=== PATIENT | female | born 1945 | race Caucasian/White ===

== ENCOUNTER 2019-07-24 09:03 | Observation (INO) | payer MEDICARE ==
[~2019-07-24] VITALS: Ht 157.5 cm; Wt 97.3 kg
[~2019-07-24 09:03] MED LIST: ACET-890 PO; BUPR150T8 PO; GABA300C PO; METH4TAB3 PO; NITR100C6 PO; ONDA4TAB59 PO; PRED20TA PO
[2019-07-24] MEDS ORDERED: nitroGLYCERIN 0.4mg SUBLingual tab SL PRN ×2 (09:20→14:55)
[2019-07-24] MEDS ORDERED: aspirin 81mg tab.chew PO ONE (09:20)
[2019-07-24 09:32] LABS: BASOPHILS # (AUTO) 0.1 X10'3 (0-0.2); BASOPHILS % (AUTO) 1.5 % (0-1); EOSINOPHILS # (AUTO) 0.1 X10'3 (0-0.9); HEMATOCRIT 41.6 % (35.0-45.0); HEMOGLOBIN 14.4 g/dl (12.0-16.0); LYMPHOCYTES # (AUTO) 2.9 X10'3 (1.1-4.8); LYMPHOCYTES % (AUTO) 44.1 % (21-51); MEAN CORPUSCULAR HEMOGLOBIN 31.7 PG (27.0-31.0); MEAN CORPUSCULAR HGB CONC 34.6 g/dL (33.0-36.5); MEAN CORPUSCULAR VOLUME 91.5 FL (78-98); MEAN PLATELET VOLUME 8.4 FL (7.4-10.4); MONOCYTES # (AUTO) 0.5 X10'3 (0-0.9); MONOCYTES % (AUTO) 7.7 % (2-12); NEUTROPHILS % (AUTO) 44.7 % (42-75); PLATELET COUNT 241 X10'3 (140-440); RED BLOOD COUNT 4.54 X10'6 (4.20-5.60); RED CELL DISTRIBUTION WIDTH 12.8 % (11.5-14.5); WHITE BLOOD COUNT 6.7 X10'3 (4.5-11.0)
[2019-07-24 09:46] LABS: ALANINE AMINOTRANSFERASE 24 U/L (12-78); ALBUMIN 3.5 G/DL (3.4-5.0); ALBUMIN/GLOBULIN RATIO 0.9 (1.1-1.5); ALKALINE PHOSPHATASE 94 IU/L (46-116); ANION GAP 12 (8-16); ASPARTATE AMINO TRANSFERASE 18 U/L (10-37); BILIRUBIN,TOTAL 0.3 MG/DL (0.1-1.0); BLOOD UREA NITROGEN 12 MG/DL (7-18); BUN/CREATININE RATIO 14.3 (6.6-38.0); CHLORIDE 106 MMOL/L (99-107); CREATININE 0.84 MG/DL (0.40-0.90); GLUCOSE 185 MG/DL (70-104); SODIUM 140 MMOL/L (135-145); TOTAL CARBON DIOXIDE 22.5 MMOL/L (24-32); TOTAL PROTEIN 7.6 G/DL (6.4-8.2); eGFR 66 ML/MIN
[2019-07-24] MEDS ORDERED: acetaminophen 325mg tablet PO PRN (10:45)
[2019-07-24] MEDS ORDERED: magnesium hydroxide 30ml (MOM) UD suspension PO PRN (10:45)
[2019-07-24] MEDS ORDERED: ondansetron/PF 4mg/2ml inj IV PRN (10:45)
[2019-07-24] MEDS ORDERED: mag hydrox/Alum hydrox/simeth 30ml oral suspension PO PRN (10:45)
[2019-07-24] MEDS ORDERED: morphine 2 MG/ML inj. syringe IV PRN ×2 (10:45)
--- NOTE | 2019-07-24 11:23 | NUR ---
Patient in room ED 13. I have received report from JAGJIT Norris RN and had the opportunity to ask questions and assume patient care.
--- NOTE | 2019-07-24 11:55 | NUR ---
Pt arrived to [facility] room 310 via gurney from ED. Pt ambulated off gurney, in to room independently and without difficulty. Pt connected to monitor, vital signs obtained, oriented to room including TV and call light use. Belongings placed within reach. Will continue to monitor.
[2019-07-24 12:00] VITALS: BP 157/50
[2019-07-24] MEDS ORDERED: aminophylline 250mg/10ml inj. IV PRN (14:55)
[2019-07-24] MEDS ORDERED: metoprolol tartrate 1mg/ml inj IV PRN (14:55)
[2019-07-24] MEDS ORDERED: regadenoson 0.4mg/5ml syringe IV ONE (14:55)
[2019-07-24 15:00] VITALS: BP 168/70
[2019-07-24] MEDS ORDERED: NO HOME MEDS (15:25)
[2019-07-24 18:00] VITALS: BP 163/74
[2019-07-24] MEDS: heparin, porcine 5000 units/ml vial SQ SCH (19:59)
[2019-07-24] MEDS: carVEDilol 3.125mg tablet PO SCH (19:59)
[2019-07-24] MEDS: normal saline 1000ml 1,000 ML IV SCH (19:59)
[2019-07-24 22:00] VITALS: BP 139/54
[2019-07-25] VITALS (10 sets, daily range): BP systolic 113–146; BP diastolic 60–80
[2019-07-25 03:43] LABS: BASOPHILS # (AUTO) 0.1 X10'3 (0-0.2); BASOPHILS % (AUTO) 1.1 % (0-1); EOSINOPHILS # (AUTO) 0.2 X10'3 (0-0.9); EOSINOPHILS % (AUTO) 2.3 % (0-6); HEMATOCRIT 40.9 % (35.0-45.0); HEMOGLOBIN 14.2 g/dl (12.0-16.0); LYMPHOCYTES # (AUTO) 3.9 X10'3 (1.1-4.8); LYMPHOCYTES % (AUTO) 51.4 % (21-51); MEAN CORPUSCULAR HEMOGLOBIN 31.6 PG (27.0-31.0); MEAN CORPUSCULAR HGB CONC 34.7 g/dL (33.0-36.5); MEAN CORPUSCULAR VOLUME 91.2 FL (78-98); MEAN PLATELET VOLUME 8.4 FL (7.4-10.4); MONOCYTES # (AUTO) 0.8 X10'3 (0-0.9); MONOCYTES % (AUTO) 10.2 % (2-12); NEUTROPHILS # (AUTO) 2.7 X10'3 (1.8-7.7); PLATELET COUNT 243 X10'3 (140-440); RED BLOOD COUNT 4.49 X10'6 (4.20-5.60); RED CELL DISTRIBUTION WIDTH 12.9 % (11.5-14.5); WHITE BLOOD COUNT 7.6 X10'3 (4.5-11.0)
[2019-07-25 03:52] LABS: ALBUMIN 3.3 G/DL (3.4-5.0); ANION GAP 8 (8-16); BLOOD UREA NITROGEN 12 MG/DL (7-18); BUN/CREATININE RATIO 15.8 (6.6-38.0); CALCIUM 8.8 MG/DL (8.5-10.1); CHLORIDE 106 MMOL/L (99-107); CREATININE 0.76 MG/DL (0.40-0.90); GLUCOSE 116 MG/DL (70-104); POTASSIUM 4.1 MMOL/L (3.5-5.1); SODIUM 139 MMOL/L (135-145); eGFR 75 ML/MIN
[2019-07-25 04:14] LABS: TOTAL CELLS COUNTED 100
[2019-07-25 04:15] LABS: PLATELET ESTIMATE NORMAL
[2019-07-25] MEDS: normal saline 1000ml 1,000 ML IV SCH (05:19)
--- NOTE | 2019-07-25 06:14 | NUR ---
Patient in room MED 310. I have received report from anay Johnson and had the opportunity to ask questions and assume patient care.
--- NOTE | 2019-07-25 06:31 | NUR ---
Problems reprioritized. Patient report given, questions answered & plan of care reviewed with Gianna DENSON.
[2019-07-25] MEDS: heparin, porcine 5000 units/ml vial SQ SCH (07:30)
[2019-07-25] MEDS ORDERED: atorvastatin 20mg tablet PO SCH (08:00)
[2019-07-25] MEDS ORDERED: aspirin 81mg tablet.DR PO SCH (08:00)
--- NOTE | 2019-07-25 09:10 | NUR ---
Pt left unit for stress test at 0910 via wheelchair. No noted distress.
[2019-07-25] MEDS ORDERED: COR3.125T PO (11:54)
[2019-07-25] MEDS: carVEDilol 3.125mg tablet PO SCH (12:12)
--- NOTE | 2019-07-25 15:14 | NUR ---
reviewed all discharge instructions,including medications and f/u appt.SL dc'd from [facility], pt dc;d home with all belongings via wheelchair with family
== END 2019-07-25 15:00 | disposition home or self-care (01) ==
LOC: ER 09:04 → ED HOLD 10:47 → MED 3N 12:27
PROVIDERS: ADMIT Family Medicine; ATTEND Family Medicine
DX: R07.89 Other chest pain (principal); R01.1 Cardiac murmur, unspecified; I10 Essential (primary) hypertension; I35.0 Nonrheumatic aortic (valve) stenosis; E78.00 Pure hypercholesterolemia, unspecified; R42 Dizziness and giddiness; R11.0 Nausea; K21.9 Gastro-esophageal reflux disease without esophagitis; G89.29 Other chronic pain; M54.9 Dorsalgia, unspecified; F32.9 Major depressive disorder, single episode, unspecified; F41.9 Anxiety disorder, unspecified; E78.5 Hyperlipidemia, unspecified; E66.9 Obesity, unspecified; Z86.73 Personal history of transient ischemic attack (TIA), and cerebral infarction without residual deficits; Z90.710 Acquired absence of both cervix and uterus; Z90.49 Acquired absence of other specified parts of digestive tract; Z90.89 Acquired absence of other organs; Z98.51 Tubal ligation status; Z79.899 Other long term (current) drug therapy; Z88.5 Allergy status to narcotic agent; Z88.1 Allergy status to other antibiotic agents; Z88.2 Allergy status to sulfonamides; Z88.8 Allergy status to other drugs, medicaments and biological substances; Z91.040 Latex allergy status; Z91.013 Allergy to seafood; Z68.39 Body mass index [BMI] 39.0-39.9, adult
CPT/HCPCS: 36415; 71045; 78452; 80048; 80053; 83880; 84484; 85025; 87081; 93005; 93017; 93306; 96361; 96372; 96374; 99284; A9500; G0378; J1644; J2270; J2785; J7030

== ENCOUNTER 2019-09-09 22:02 | Emergency (ER) | payer MEDICARE, OTHER ==
[~2019-09-09] VITALS: Ht 160 cm; Wt 93.8 kg
[~2019-09-09 22:02] MED LIST changes: -ACET-890 PO; -BUPR150T8 PO; +COR3.125T PO; -GABA300C PO; -METH4TAB3 PO; -NITR100C6 PO; -ONDA4TAB59 PO; -PRED20TA PO
[2019-09-09] MEDS ORDERED: ondansetron/PF 4mg/2ml inj IV ONE (22:25)
[2019-09-09 22:43] LABS: BASOPHILS # (AUTO) 0.1 X10'3 (0-0.2); BASOPHILS % (AUTO) 1.4 % (0-1); EOSINOPHILS # (AUTO) 0.1 X10'3 (0-0.9); EOSINOPHILS % (AUTO) 1.4 % (0-6); HEMATOCRIT 44.2 % (35.0-45.0); HEMOGLOBIN 15.2 g/dl (12.0-16.0); LYMPHOCYTES % (AUTO) 38.7 % (21-51); MEAN CORPUSCULAR HEMOGLOBIN 31.4 PG (27.0-31.0); MEAN CORPUSCULAR HGB CONC 34.4 g/dL (33.0-36.5); MEAN CORPUSCULAR VOLUME 91.3 FL (78-98); MEAN PLATELET VOLUME 8.5 FL (7.4-10.4); MONOCYTES % (AUTO) 9.3 % (2-12); NEUTROPHILS # (AUTO) 5.1 X10'3 (1.8-7.7); NEUTROPHILS % (AUTO) 49.2 % (42-75); PLATELET COUNT 269 X10'3 (140-440); RED BLOOD COUNT 4.84 X10'6 (4.20-5.60); RED CELL DISTRIBUTION WIDTH 12.4 % (11.5-14.5); WHITE BLOOD COUNT 10.4 X10'3 (4.5-11.0)
[2019-09-09] MEDS ORDERED: ondansetron 4mg rapidly disintigrating tab PO ONE (22:45)
[2019-09-09 22:51] LABS: ALANINE AMINOTRANSFERASE 28 U/L (12-78); ALBUMIN 3.7 G/DL (3.4-5.0); ALBUMIN/GLOBULIN RATIO 0.9 (1.1-1.5); ALKALINE PHOSPHATASE 100 IU/L (46-116); ANION GAP 6 (8-16); ASPARTATE AMINO TRANSFERASE 19 U/L (10-37); BILIRUBIN,TOTAL 0.3 MG/DL (0.1-1.0); BLOOD UREA NITROGEN 15 MG/DL (7-18); BUN/CREATININE RATIO 15.5 (6.6-38.0); CHLORIDE 104 MMOL/L (99-107); CREATININE 0.97 MG/DL (0.40-0.90); GLUCOSE 125 MG/DL (70-104); LIPASE 154 U/L (73-393); POTASSIUM 3.9 MMOL/L (3.5-5.1); SODIUM 137 MMOL/L (135-145); TOTAL CARBON DIOXIDE 27.1 MMOL/L (24-32); TOTAL PROTEIN 7.6 G/DL (6.4-8.2); eGFR 56 ML/MIN
[2019-09-09 23:34] LABS: CLARITY,URINE CLEAR (Clear); COLOR,URINE YELLOW (Yellow); GLUCOSE, URINE NEGATIVE (Neg); KETONES,URINE NEGATIVE (Neg); LEUKOCYTE ESTERASE ,URINE SMALL (Neg); NITRITES, URINE NEGATIVE (Neg); OCCULT BLOOD,URINE TRACE-INTACT (Neg); PROTEIN,URINE NEGATIVE (Neg); UROBILINOGEN,URINE 0.2 E.U/dL (0.2-1.0)
[2019-09-09 23:41] LABS: UA COLLECTION TYPE CLN CATCH MIDSTREAM
[2019-09-09 23:42] LABS: BACTERIA,URINE FEW /HPF (Neg); RBC,URINE 0-2 /HPF (0-2); SQUAMOUS EPITHELIAL CELL,UR FEW /LPF (FEW)
[2019-09-10] MEDS ORDERED: DOXY100C43 PO (00:16)
[2019-09-10] MEDS ORDERED: ALBU18HF2 INH (00:16)
[2019-09-10] MEDS ORDERED: ONDA4TAB6 PO (00:27)
[2019-09-10 00:43] VITALS: BP 136/54
== END 2019-09-10 00:25 | disposition home or self-care (01) ==
LOC: ER 22:02
DX: J06.9 Acute upper respiratory infection, unspecified (principal); J20.9 Acute bronchitis, unspecified; N39.0 Urinary tract infection, site not specified; E78.00 Pure hypercholesterolemia, unspecified; K21.9 Gastro-esophageal reflux disease without esophagitis; G89.29 Other chronic pain; F41.9 Anxiety disorder, unspecified; F32.9 Major depressive disorder, single episode, unspecified; Z86.73 Personal history of transient ischemic attack (TIA), and cerebral infarction without residual deficits; Z90.49 Acquired absence of other specified parts of digestive tract; Z90.710 Acquired absence of both cervix and uterus; Z90.89 Acquired absence of other organs; Z98.51 Tubal ligation status; Z98.890 Other specified postprocedural states; Z88.2 Allergy status to sulfonamides; Z88.1 Allergy status to other antibiotic agents; Z88.5 Allergy status to narcotic agent; Z88.6 Allergy status to analgesic agent; Z88.8 Allergy status to other drugs, medicaments and biological substances; Z91.013 Allergy to seafood; Z91.040 Latex allergy status; Z79.899 Other long term (current) drug therapy
CPT/HCPCS: 36415; 71045; 74176; 80053; 81001; 83690; 85025; 87088; 99284; J2405

== ENCOUNTER 2020-08-11 21:26 | Observation (INO) | payer MEDICARE, OTHER ==
[~2020-08-11] VITALS: Ht 157.5 cm; Wt 90.9 kg
[~2020-08-11 21:26] MED LIST changes: +APIX5TAB3 PO; +BUPR300T53 PO; +LAN0.125T PO; +ONDA4TAB6 PO
[2020-08-11] MEDS ORDERED: nitroGLYCERIN 0.4mg SUBLingual tab SL PRN ×2 (22:05→22:45)
[2020-08-11] MEDS ORDERED: aspirin 81mg tab.chew PO ONE (22:05)
[2020-08-11 22:14] LABS: BASOPHILS # (AUTO) 0.1 X10'3 (0-0.2); BASOPHILS % (AUTO) 1.1 % (0-1); EOSINOPHILS # (AUTO) 0.2 X10'3 (0-0.9); EOSINOPHILS % (AUTO) 1.4 % (0-6); HEMATOCRIT 42.7 % (35.0-45.0); HEMOGLOBIN 14.8 g/dl (12.0-16.0); LYMPHOCYTES # (AUTO) 4.5 X10'3 (1.1-4.8); LYMPHOCYTES % (AUTO) 42.1 % (21-51); MEAN CORPUSCULAR HEMOGLOBIN 31.7 PG (27.0-31.0); MEAN CORPUSCULAR HGB CONC 34.7 g/dL (33.0-36.5); MEAN CORPUSCULAR VOLUME 91.4 FL (78-98); MEAN PLATELET VOLUME 9.5 FL (7.4-10.4); MONOCYTES # (AUTO) 0.9 X10'3 (0-0.9); MONOCYTES % (AUTO) 8.8 % (2-12); NEUTROPHILS % (AUTO) 46.6 % (42-75); PLATELET COUNT 256 X10'3 (140-440); RED BLOOD COUNT 4.67 X10'6 (4.20-5.60); RED CELL DISTRIBUTION WIDTH 12.8 % (11.5-14.5); WHITE BLOOD COUNT 10.7 X10'3 (4.5-11.0)
[2020-08-11 22:18] LABS: ALANINE AMINOTRANSFERASE 24 U/L (12-78); ALBUMIN 3.7 G/DL (3.4-5.0); ALBUMIN/GLOBULIN RATIO 0.9 (1.1-1.5); ALKALINE PHOSPHATASE 126 IU/L (46-116); ANION GAP 9 (8-16); ASPARTATE AMINO TRANSFERASE 10 U/L (10-37); BILIRUBIN,TOTAL 0.3 MG/DL (0.1-1.0); BLOOD UREA NITROGEN 14 MG/DL (7-18); BUN/CREATININE RATIO 13.9 (6.6-38.0); CALCIUM 9.3 MG/DL (8.5-10.1); CHLORIDE 104 MMOL/L (99-107); CREATININE 1.01 MG/DL (0.40-0.90); GLUCOSE 140 MG/DL (70-104); POTASSIUM 4.1 MMOL/L (3.5-5.1); SODIUM 137 MMOL/L (135-145); TOTAL CARBON DIOXIDE 23.9 MMOL/L (24-32); eGFR 54 ML/MIN
[2020-08-11] MEDS ORDERED: acetaminophen 325mg tablet PO PRN (22:45)
[2020-08-11] MEDS ORDERED: regadenoson 0.4mg/5ml syringe IV PRN (22:45)
[2020-08-11] MEDS ORDERED: magnesium 4gm in 100ml NS 100 ML IV PRN (22:45)
[2020-08-11] MEDS ORDERED: magnesium 2GM in 50ml NS 50 ML IV PRN (22:45)
[2020-08-11] MEDS ORDERED: potassium CL 10mEq/100ml bag 100 ML IV PRN ×2 (22:45)
[2020-08-11] MEDS ORDERED: potassium Cl 20 mEq SR tablet PO PRN ×2 (22:45)
[2020-08-11] MEDS ORDERED: aminophylline 250mg/10ml inj. IV PRN (22:45)
[2020-08-11] MEDS ORDERED: ondansetron/PF 4mg/2ml inj IV PRN (22:45)
[2020-08-11] MEDS ORDERED: metoprolol tartrate 1mg/ml inj IV PRN (22:45)
[2020-08-12] VITALS (10 sets, daily range): BP systolic 125–154; BP diastolic 51–64
[2020-08-12 04:09] LABS: ALANINE AMINOTRANSFERASE 26 U/L (12-78); ALBUMIN 3.4 G/DL (3.4-5.0); ALBUMIN/GLOBULIN RATIO 0.9 (1.1-1.5); ALKALINE PHOSPHATASE 107 IU/L (46-116); ANION GAP 8 (8-16); ASPARTATE AMINO TRANSFERASE 12 U/L (10-37); BILIRUBIN,TOTAL 0.3 MG/DL (0.1-1.0); BLOOD UREA NITROGEN 12 MG/DL (7-18); BUN/CREATININE RATIO 13.6 (6.6-38.0); CALCIUM 8.9 MG/DL (8.5-10.1); CHLORIDE 107 MMOL/L (99-107); CREATININE 0.88 MG/DL (0.40-0.90); GLUCOSE 120 MG/DL (70-104); POTASSIUM 4.1 MMOL/L (3.5-5.1); SODIUM 140 MMOL/L (135-145); TOTAL CARBON DIOXIDE 24.6 MMOL/L (24-32); TOTAL PROTEIN 7.3 G/DL (6.4-8.2); eGFR 63 ML/MIN
[2020-08-12 04:11] LABS: CHOL/HDL RATIO 3.3 (0.00-4.99); CHOLESTEROL 200 MG/DL (0-200); HDL CHOLESTEROL 60 MG/DL (35-60); LDL CHOLESTEROL 130 MG/DL (50-100); MAGNESIUM 2.1 MG/DL (1.5-2.4); TRIGLYCERIDES 136 MG/DL (20-135)
[2020-08-12 04:18] LABS: BASOPHILS # (AUTO) 0.1 X10'3 (0-0.2); BASOPHILS % (AUTO) 0.9 % (0-1); EOSINOPHILS # (AUTO) 0.2 X10'3 (0-0.9); HEMATOCRIT 40.6 % (35.0-45.0); HEMOGLOBIN 13.8 g/dl (12.0-16.0); LYMPHOCYTES # (AUTO) 4.1 X10'3 (1.1-4.8); MEAN CORPUSCULAR HEMOGLOBIN 31.5 PG (27.0-31.0); MEAN CORPUSCULAR HGB CONC 34.1 g/dL (33.0-36.5); MEAN CORPUSCULAR VOLUME 92.4 FL (78-98); MEAN PLATELET VOLUME 9.3 FL (7.4-10.4); MONOCYTES # (AUTO) 0.8 X10'3 (0-0.9); MONOCYTES % (AUTO) 8.8 % (2-12); NEUTROPHILS # (AUTO) 3.8 X10'3 (1.8-7.7); NEUTROPHILS % (AUTO) 42.3 % (42-75); PLATELET COUNT 235 X10'3 (140-440); RED BLOOD COUNT 4.39 X10'6 (4.20-5.60); RED CELL DISTRIBUTION WIDTH 12.6 % (11.5-14.5)
[2020-08-12] MEDS ORDERED: digoxin 125mcg (0.125mg) tablet PO SCH (07:00)
[2020-08-12] MEDS ORDERED: pantoprazole 40mg Tablet.DR PO SCH (07:30)
--- NOTE | 2020-08-12 07:30 | NUR ---
Received pt from ER. A&Ox4. c/o 10/22 left arm pain. medicated as order. V/S within normal limits.
[2020-08-12] MEDS ORDERED: carVEDilol 3.125mg tablet PO SCH (08:00)
[2020-08-12] MEDS ORDERED: docusate sod 100mg capsule PO SCH (08:00)
[2020-08-12] MEDS ORDERED: K and/or MAG REPLACEMENT MC SCH (08:00)
[2020-08-12] MEDS ORDERED: buPROPion SR 150mg tablet PO SCH (08:00)
[2020-08-12] MEDS ORDERED: apixaban 5mg tablet PO SCH (08:00)
--- NOTE | 2020-08-12 10:30 | NUR ---
Pt out for Marybeth scan.
--- NOTE | 2020-08-12 12:12 | NUR ---
Pt back from [facility]. requesting to eat. informed PAGER ID: [phone] MESSAGE: Magdalena anderson/neuro.. [phone]. Pt: Anton Rm: [id number]. Laxi Scan done. Pt is NPO, requesting lunch. can she get a diet order? thanks.
--- NOTE | 2020-08-12 12:26 | NUR ---
Keep NPO per Dr Horvath. Pt uncooperative states if she does not get something to eat she'll check herself out of the hospital. offered to check blood sugar levels, but pt refused.
[2020-08-12] MEDS ORDERED: FAMO-128 PO (14:31)
--- NOTE | 2020-08-12 16:34 | NUR ---
Pt discharge home in stable condition. IV and tele box removed prior discharge. Medication and plan of care instruction given to pt. Left the facility via private vehicle accompanied by family member.
[2020-08-12] MEDS ORDERED: enoxaparin 40mg/0.4ml syringe SQ SCH (20:00)
== END 2020-08-12 16:30 | disposition home or self-care (01) ==
LOC: ER 21:26 → ED HOLD 22:45 → ORTHO 4S 08-12 07:20
PROVIDERS: ADMIT Family Medicine; ATTEND Family Medicine
DX: R07.89 Other chest pain (principal); G45.9 Transient cerebral ischemic attack, unspecified; I48.20 Chronic atrial fibrillation, unspecified; I48.0 Paroxysmal atrial fibrillation; I10 Essential (primary) hypertension; E78.5 Hyperlipidemia, unspecified; K21.9 Gastro-esophageal reflux disease without esophagitis; E78.00 Pure hypercholesterolemia, unspecified; F41.8 Other specified anxiety disorders; J30.9 Allergic rhinitis, unspecified; Z79.01 Long term (current) use of anticoagulants; Z86.79 Personal history of other diseases of the circulatory system; Z86.73 Personal history of transient ischemic attack (TIA), and cerebral infarction without residual deficits; Z90.710 Acquired absence of both cervix and uterus; Z79.899 Other long term (current) drug therapy
CPT/HCPCS: 36415; 71045; 78452; 80053; 80061; 83735; 83880; 84484; 85025; 87081; 93005; 93017; 99285; A9500; G0378; J2785

== ENCOUNTER 2020-09-10 18:13 | Emergency (ER) | payer MEDICARE, OTHER ==
[~2020-09-10] VITALS: Ht 158.8 cm; Wt 92.5 kg
[~2020-09-10 18:13] MED LIST changes: +FAMO-128 PO; -ONDA4TAB6 PO
[2020-09-10] MEDS ORDERED: TETanus/Pertussis (Acell)/Diphther VAC/PF (Tdap-Adult) 0.5ml syringe IMVAC ONE (18:45)
[2020-09-10 19:03] LABS: BASOPHILS # (AUTO) 0.1 X10'3 (0-0.2); BASOPHILS % (AUTO) 1.3 % (0-1); EOSINOPHILS # (AUTO) 0.1 X10'3 (0-0.9); EOSINOPHILS % (AUTO) 1.3 % (0-6); HEMATOCRIT 43.8 % (35.0-45.0); LYMPHOCYTES # (AUTO) 3.2 X10'3 (1.1-4.8); LYMPHOCYTES % (AUTO) 34.3 % (21-51); MEAN CORPUSCULAR HEMOGLOBIN 31.6 PG (27.0-31.0); MEAN CORPUSCULAR HGB CONC 34.2 g/dL (33.0-36.5); MEAN CORPUSCULAR VOLUME 92.5 FL (78-98); MONOCYTES # (AUTO) 0.8 X10'3 (0-0.9); MONOCYTES % (AUTO) 8.5 % (2-12); NEUTROPHILS # (AUTO) 5.1 X10'3 (1.8-7.7); NEUTROPHILS % (AUTO) 54.6 % (42-75); PLATELET COUNT 275 X10'3 (140-440); RED BLOOD COUNT 4.74 X10'6 (4.20-5.60); WHITE BLOOD COUNT 9.4 X10'3 (4.5-11.0)
[2020-09-10 19:13] LABS: PARTIAL THROMBOPLASTIN TIME 27 SECONDS (22-32)
[2020-09-10 19:15] LABS: ALANINE AMINOTRANSFERASE 30 U/L (12-78); ALBUMIN 3.7 G/DL (3.4-5.0); ALBUMIN/GLOBULIN RATIO 0.9 (1.1-1.5); ALKALINE PHOSPHATASE 110 IU/L (46-116); ANION GAP 11 (8-16); ASPARTATE AMINO TRANSFERASE 22 U/L (10-37); BILIRUBIN,TOTAL 0.3 MG/DL (0.1-1.0); BLOOD UREA NITROGEN 15 MG/DL (7-18); CHLORIDE 106 MMOL/L (99-107); CREATININE 1.07 MG/DL (0.40-0.90); GLUCOSE 138 MG/DL (70-104); SODIUM 142 MMOL/L (135-145); TOTAL CARBON DIOXIDE 25.2 MMOL/L (24-32); eGFR 50 ML/MIN
[2020-09-10] MEDS ORDERED: LIDOcaine 1% W/epiNEPHrine 1:200,000 10ml vial IJ ONE (20:05)
[2020-09-10] MEDS ORDERED: acetaminophen 325mg tablet PO ONE (20:55)
[2020-09-10 21:20] VITALS: BP 140/77
== END 2020-09-10 21:24 | disposition home or self-care (01) ==
LOC: ER 18:14
DX: S01.01XA Laceration without foreign body of scalp, initial encounter (principal); E78.00 Pure hypercholesterolemia, unspecified; K21.9 Gastro-esophageal reflux disease without esophagitis; G89.29 Other chronic pain; F41.9 Anxiety disorder, unspecified; F32.9 Major depressive disorder, single episode, unspecified; Z90.49 Acquired absence of other specified parts of digestive tract; Z90.710 Acquired absence of both cervix and uterus; Z98.51 Tubal ligation status; Z98.890 Other specified postprocedural states; Z86.73 Personal history of transient ischemic attack (TIA), and cerebral infarction without residual deficits; Z88.1 Allergy status to other antibiotic agents; Z88.2 Allergy status to sulfonamides; Z88.6 Allergy status to analgesic agent; Z91.040 Latex allergy status; Z91.013 Allergy to seafood; Z79.01 Long term (current) use of anticoagulants; Z79.899 Other long term (current) drug therapy; W18.39XA Other fall on same level, initial encounter; Y93.89 Activity, other specified; Y92.89 Other specified places as the place of occurrence of the external cause; Y99.8 Other external cause status
CPT/HCPCS: 12002; 36415; 70450; 72125; 80053; 85025; 85610; 85730; 90471; 90715; 93005; 93306; 99285

== ENCOUNTER 2020-10-31 16:22 | Emergency (ER) | payer MEDICARE, OTHER ==
[~2020-10-31] VITALS: Ht 157.5 cm; Wt 100.0 kg
[2020-10-31 16:38] VITALS: BP 153/68
--- NOTE | 2020-10-31 16:45 | NUR ---
DURING TRIAGE, THE PATIENT WAS REASSURED THAT THE EKG WAS NOT ABNORMAL, PER ER DOC. PATIENT STATES, "THEN I AM JUST GOING TO LEAVE IF THERE IS NOTHING WRONG WITH ME." PATIENT INFORMED THAT FURTHER WORK-UP IS NECESSARY TO DETERMINE THE CAUSE OF HER PERSISTENT CHEST PAIN. PATIENT STATES THAT SHE IS UNSURE IF SHE WILL STAY, BUT WENT OUT TO THE LOBBY TO WAIT FOR ROOM.
[2020-11-01] MEDS ORDERED: FAMO40TA73 PO (05:27)
== END 2020-10-31 18:05 | disposition left against medical advice (07) ==
LOC: ER 16:23
DX: R07.89 Other chest pain (principal); Z53.21 Procedure and treatment not carried out due to patient leaving prior to being seen by health care provider
CPT/HCPCS: 93005

== ENCOUNTER 2020-11-01 02:39 | Emergency (ER) | payer MEDICARE, OTHER ==
[~2020-11-01] VITALS: Ht 157.5 cm; Wt 100.0 kg
[2020-11-01] MEDS ORDERED: aspirin 81mg tab.chew PO ONE (03:10)
[2020-11-01] MEDS: nitroGLYCERIN 0.4mg SUBLingual tab SL PRN ×2 (03:14→03:41)
[2020-11-01 03:17] LABS: ALANINE AMINOTRANSFERASE 20 U/L (12-78); ALBUMIN 3.4 G/DL (3.4-5.0); ALBUMIN/GLOBULIN RATIO 0.8 (1.1-1.5); ALKALINE PHOSPHATASE 112 IU/L (46-116); ANION GAP 11 (8-16); ASPARTATE AMINO TRANSFERASE 15 U/L (10-37); BILIRUBIN,TOTAL 0.2 MG/DL (0.1-1.0); BLOOD UREA NITROGEN 9 MG/DL (7-18); BUN/CREATININE RATIO 10.1 (6.6-38.0); CALCIUM 9.1 MG/DL (8.5-10.1); CHLORIDE 104 MMOL/L (99-107); CREATININE 0.89 MG/DL (0.40-0.90); GLUCOSE 160 MG/DL (70-104); POTASSIUM 3.7 MMOL/L (3.5-5.1); SODIUM 139 MMOL/L (135-145); TOTAL CARBON DIOXIDE 24.3 MMOL/L (24-32); TOTAL PROTEIN 7.6 G/DL (6.4-8.2); eGFR 62 ML/MIN
[2020-11-01 03:29] LABS: BASOPHILS # (AUTO) 0.1 X10'3 (0-0.2); BASOPHILS % (AUTO) 1.1 % (0-1); EOSINOPHILS # (AUTO) 0.1 X10'3 (0-0.9); EOSINOPHILS % (AUTO) 1.3 % (0-6); HEMATOCRIT 40.4 % (35.0-45.0); HEMOGLOBIN 13.7 g/dl (12.0-16.0); LYMPHOCYTES # (AUTO) 3.7 X10'3 (1.1-4.8); MEAN CORPUSCULAR HEMOGLOBIN 31.1 PG (27.0-31.0); MEAN CORPUSCULAR HGB CONC 33.8 g/dL (33.0-36.5); MEAN CORPUSCULAR VOLUME 91.9 FL (78-98); MONOCYTES % (AUTO) 10.4 % (2-12); NEUTROPHILS # (AUTO) 4.8 X10'3 (1.8-7.7); NEUTROPHILS % (AUTO) 49.2 % (42-75); PLATELET COUNT 249 X10'3 (140-440); RED CELL DISTRIBUTION WIDTH 12.6 % (11.5-14.5); WHITE BLOOD COUNT 9.8 X10'3 (4.5-11.0)
[2020-11-01] MEDS ORDERED: mag hydrox/Alum hydrox/simeth 30ml oral suspension PO ONE (03:50)
[2020-11-01] MEDS ORDERED: LIDOcaine Viscous 15ml cup MM ONE (03:50)
[2020-11-01] MEDS ORDERED: diphenhydrAMINE 25 MG/10 ML UD oral solution PO ONE (03:50)
[2020-11-01] MEDS ORDERED: famotidine/PF 10 mg/ml inj IV ONE (04:45)
[2020-11-01] MEDS ORDERED: FAMO40TA73 PO (05:27)
[2020-11-01 05:48] VITALS: BP 105/54
== END 2020-11-01 06:08 | disposition home or self-care (01) ==
LOC: ER 02:39
DX: R07.89 Other chest pain (principal); I48.91 Unspecified atrial fibrillation; E78.5 Hyperlipidemia, unspecified; K21.9 Gastro-esophageal reflux disease without esophagitis; Z86.73 Personal history of transient ischemic attack (TIA), and cerebral infarction without residual deficits; E78.00 Pure hypercholesterolemia, unspecified; G89.29 Other chronic pain; Z90.49 Acquired absence of other specified parts of digestive tract; Z90.710 Acquired absence of both cervix and uterus; Z98.51 Tubal ligation status; Z95.5 Presence of coronary angioplasty implant and graft; Z88.1 Allergy status to other antibiotic agents; Z88.2 Allergy status to sulfonamides; Z88.8 Allergy status to other drugs, medicaments and biological substances; Z91.041 Radiographic dye allergy status; Z91.040 Latex allergy status; Z91.013 Allergy to seafood; Z79.899 Other long term (current) drug therapy
CPT/HCPCS: 36415; 71045; 80053; 83880; 84484; 85025; 93005; 96374; 99285; J3490; Q0163

== ENCOUNTER 2021-01-08 13:31 | Outpatient (CLI) | payer MEDICARE, OTHER ==
[~2021-01-08 13:31] MED LIST changes: +FAMO40TA73 PO
== END 2021-01-08 23:59 | disposition home or self-care (01) ==
LOC: CARD DIAG 13:31
PROVIDERS: ATTEND Internal Medicine Cardiovascular Disease
DX: I48.0 Paroxysmal atrial fibrillation (principal); R01.1 Cardiac murmur, unspecified
CPT/HCPCS: 93306

== ENCOUNTER → 2021-05-07 | Outpatient (CLI) | payer MEDICARE, OTHER ==
[~2021-05-07] VITALS: Ht 157.5 cm; Wt 88.4 kg
[~2021-05-07] MED LIST changes: +ATOR40TA71 PO; +CARV6.253 PO; -COR3.125T PO; +DIGO250T4 PO; -FAMO-128 PO; -FAMO40TA73 PO; +IODIXANOL 320 MG/ML INFUS..BTL 100ML IV ONE; +IODIXANOL 320 MG/ML INFUS..BTL 50ML IV ONE; -LAN0.125T PO; +LISI2.5T14 PO; +LORA10TA7 PO; +OMEP20TA23 PO
[2021-05-07 10:40] LABS: BASOPHILS # (AUTO) 0.1 X10'3 (0-0.2); BASOPHILS % (AUTO) 0.8 % (0-1); EOSINOPHILS # (AUTO) 0.1 X10'3 (0-0.9); EOSINOPHILS % (AUTO) 0.7 % (0-6); HEMATOCRIT 40.5 % (35.0-45.0); HEMOGLOBIN 13.8 g/dl (12.0-16.0); LYMPHOCYTES # (AUTO) 3.7 X10'3 (1.1-4.8); LYMPHOCYTES % (AUTO) 32.4 % (21-51); MEAN CORPUSCULAR HEMOGLOBIN 31.6 PG (27.0-31.0); MEAN CORPUSCULAR HGB CONC 34.1 g/dL (33.0-36.5); MEAN CORPUSCULAR VOLUME 92.5 FL (78-98); MEAN PLATELET VOLUME 9.8 FL (7.4-10.4); MONOCYTES # (AUTO) 0.8 X10'3 (0-0.9); MONOCYTES % (AUTO) 7.4 % (2-12); NEUTROPHILS # (AUTO) 6.7 X10'3 (1.8-7.7); NEUTROPHILS % (AUTO) 58.7 % (42-75); PLATELET COUNT 234 X10'3 (140-440); RED BLOOD COUNT 4.38 X10'6 (4.20-5.60); RED CELL DISTRIBUTION WIDTH 13.7 % (11.5-14.5); WHITE BLOOD COUNT 11.4 X10'3 (4.5-11.0)
[2021-05-07 10:53] LABS: PARTIAL THROMBOPLASTIN TIME 31 SECONDS (22-32)
[2021-05-07 10:55] LABS: ALANINE AMINOTRANSFERASE 34 U/L (12-78); ALBUMIN 3.7 G/DL (3.4-5.0); ALKALINE PHOSPHATASE 94 IU/L (46-116); ANION GAP 9 (8-16); ASPARTATE AMINO TRANSFERASE 19 U/L (10-37); BILIRUBIN,TOTAL 0.5 MG/DL (0.1-1.0); BLOOD UREA NITROGEN 10 MG/DL (7-18); BUN/CREATININE RATIO 9.7 (6.6-38.0); CALCIUM 8.8 MG/DL (8.5-10.1); CHLORIDE 104 MMOL/L (99-107); CREATININE 1.03 MG/DL (0.40-0.90); GLUCOSE 183 MG/DL (70-104); POTASSIUM 3.7 MMOL/L (3.5-5.1); SODIUM 140 MMOL/L (135-145); TOTAL CARBON DIOXIDE 27.5 MMOL/L (24-32); TOTAL PROTEIN 7.5 G/DL (6.4-8.2); eGFR 52 ML/MIN
[2021-05-07 16:17] VITALS: BP 153/62
--- NOTE | 2021-05-07 16:18 | NUR ---
Patient was in the [facility] clinic today to consult with Dr. Alonzo and Dr. Alvarez. KCQ12 completed. Walk test completed. Vital signs measured. Patient education reviewed and questions answered.
== END | disposition home or self-care (01) ==
LOC: RAD 10:00
PROVIDERS: ATTEND Internal Medicine Cardiovascular Disease
DX: K57.30 Diverticulosis of large intestine without perforation or abscess without bleeding (principal); K76.0 Fatty (change of) liver, not elsewhere classified; I70.0 Atherosclerosis of aorta; I25.10 Atherosclerotic heart disease of native coronary artery without angina pectoris; I65.23 Occlusion and stenosis of bilateral carotid arteries; Z90.49 Acquired absence of other specified parts of digestive tract; Z20.822 Contact with and (suspected) exposure to COVID-19
CPT/HCPCS: 36415; 71275; 74174; 80053; 85025; 85610; 85730; 93880; 94010; 94727; 94729; Q9967; U0003

== ENCOUNTER 2021-06-25 10:07 | Emergency (ER) | payer MEDICARE, OTHER ==
[~2021-06-25] VITALS: Ht 157.5 cm; Wt 83.6 kg
[~2021-06-25 10:07] MED LIST changes: -IODIXANOL 320 MG/ML INFUS..BTL 100ML IV ONE; -IODIXANOL 320 MG/ML INFUS..BTL 50ML IV ONE
[2021-06-25 10:35] LABS: BASOPHILS # (AUTO) 0.1 X10'3 (0-0.2); BASOPHILS % (AUTO) 1.2 % (0-1); EOSINOPHILS # (AUTO) 0.1 X10'3 (0-0.9); EOSINOPHILS % (AUTO) 1.2 % (0-6); HEMATOCRIT 44.2 % (35.0-45.0); HEMOGLOBIN 14.9 g/dl (12.0-16.0); LYMPHOCYTES # (AUTO) 3.6 X10'3 (1.1-4.8); LYMPHOCYTES % (AUTO) 42.8 % (21-51); MEAN CORPUSCULAR HEMOGLOBIN 31.7 PG (27.0-31.0); MEAN CORPUSCULAR HGB CONC 33.6 g/dL (33.0-36.5); MEAN CORPUSCULAR VOLUME 94.2 FL (78-98); MEAN PLATELET VOLUME 9.6 FL (7.4-10.4); MONOCYTES # (AUTO) 0.7 X10'3 (0-0.9); MONOCYTES % (AUTO) 8.6 % (2-12); NEUTROPHILS # (AUTO) 3.8 X10'3 (1.8-7.7); NEUTROPHILS % (AUTO) 46.2 % (42-75); PLATELET COUNT 219 X10'3 (140-440); RED BLOOD COUNT 4.69 X10'6 (4.20-5.60); WHITE BLOOD COUNT 8.3 X10'3 (4.5-11.0)
[2021-06-25 10:51] LABS: ALANINE AMINOTRANSFERASE 25 U/L (12-78); ALBUMIN 3.7 G/DL (3.4-5.0); ALBUMIN/GLOBULIN RATIO 0.9 (1.1-1.5); ALKALINE PHOSPHATASE 118 IU/L (46-116); ANION GAP 8 (8-16); ASPARTATE AMINO TRANSFERASE 17 U/L (10-37); BILIRUBIN,TOTAL 0.5 MG/DL (0.1-1.0); BLOOD UREA NITROGEN 9 MG/DL (7-18); BUN/CREATININE RATIO 8.3 (6.6-38.0); CALCIUM 9.1 MG/DL (8.5-10.1); CHLORIDE 107 MMOL/L (99-107); CREATININE 1.09 MG/DL (0.40-0.90); GLUCOSE 133 MG/DL (70-104); POTASSIUM 3.7 MMOL/L (3.5-5.1); SODIUM 141 MMOL/L (135-145); TOTAL CARBON DIOXIDE 25.7 MMOL/L (24-32); TOTAL PROTEIN 7.9 G/DL (6.4-8.2); eGFR 49 ML/MIN
[2021-06-25 11:11] VITALS: BP 108/57
[2021-06-26] MEDS ORDERED: CARV-50 PO (13:41)
[2021-06-26] MEDS ORDERED: APIX5TAB3 PO (13:41)
[2021-06-26] MEDS ORDERED: ATOR40TA PO (13:41)
[2021-06-26] MEDS ORDERED: LISI40TA13 PO (13:41)
== END 2021-06-25 11:38 | disposition home or self-care (01) ==
LOC: ER 10:08
DX: I48.0 Paroxysmal atrial fibrillation (principal); R06.02 Shortness of breath; R00.2 Palpitations; R07.89 Other chest pain; E78.00 Pure hypercholesterolemia, unspecified; I10 Essential (primary) hypertension; K21.9 Gastro-esophageal reflux disease without esophagitis; G89.29 Other chronic pain; F41.9 Anxiety disorder, unspecified; F32.9 Major depressive disorder, single episode, unspecified; Z86.73 Personal history of transient ischemic attack (TIA), and cerebral infarction without residual deficits; Z90.49 Acquired absence of other specified parts of digestive tract; Z90.710 Acquired absence of both cervix and uterus; Z98.51 Tubal ligation status; Z98.890 Other specified postprocedural states; Z90.89 Acquired absence of other organs; Z95.1 Presence of aortocoronary bypass graft; Z88.5 Allergy status to narcotic agent; Z88.1 Allergy status to other antibiotic agents; Z88.8 Allergy status to other drugs, medicaments and biological substances; Z91.040 Latex allergy status; Z88.2 Allergy status to sulfonamides; Z91.013 Allergy to seafood; Z79.899 Other long term (current) drug therapy
CPT/HCPCS: 36415; 71045; 80053; 83880; 84484; 85025; 93005; 99285

== ENCOUNTER 2021-07-02 09:30 | Outpatient (CLI) | payer MEDICARE, OTHER ==
[2021-06-26 13:43] LABS: BASOPHILS # (AUTO) 0.1 X10'3 (0-0.2); BASOPHILS % (AUTO) 1.2 % (0-1); EOSINOPHILS # (AUTO) 0.1 X10'3 (0-0.9); EOSINOPHILS % (AUTO) 0.9 % (0-6); LYMPHOCYTES # (AUTO) 2.8 X10'3 (1.1-4.8); LYMPHOCYTES % (AUTO) 34.6 % (21-51); MEAN CORPUSCULAR HEMOGLOBIN 31.6 PG (27.0-31.0); MEAN CORPUSCULAR HGB CONC 33.8 g/dL (33.0-36.5); MEAN CORPUSCULAR VOLUME 93.6 FL (78-98); MEAN PLATELET VOLUME 9.7 FL (7.4-10.4); MONOCYTES # (AUTO) 0.7 X10'3 (0-0.9); MONOCYTES % (AUTO) 9.3 % (2-12); NEUTROPHILS # (AUTO) 4.3 X10'3 (1.8-7.7); PRE OP HEMATOCRIT 42.7 % (35.0-45.0); PRE OP HEMOGLOBIN 14.4 g/dL (12.0-16.0); PRE OP PLATELET COUNT 216 X10'3 (140-440); RED BLOOD COUNT 4.56 X10'6 (4.20-5.60)
[2021-06-26 13:54] LABS: PRE OP INR 1.1 INR; PRE OP PROTIME 11.4 SECONDS (9.0-12.0)
[2021-06-26 13:57] LABS: ALBUMIN 3.6 G/DL (3.4-5.0); ALBUMIN/GLOBULIN RATIO 0.9 (1.1-1.5); ALKALINE PHOSPHATASE 96 IU/L (46-116); BLOOD UREA NITROGEN 12 MG/DL (7-18); BUN/CREATININE RATIO 11.7 (6.6-38.0); CALCIUM 8.8 MG/DL (8.5-10.1); CHLORIDE 106 MMOL/L (99-107); CREATININE 1.03 MG/DL (0.40-0.90); PRE OP ALT 29 U/L (30-65); PRE OP ANION GAP 10 (8-16); PRE OP AST 16 U/L (10-37); PRE OP BILIRUB, TOTAL 0.4 MG/DL (0.0-1.0); PRE OP GLUCOSE 129 MG/DL (70-104); PRE OP SODIUM 142 MMOL/L (135-145); TOTAL CARBON DIOXIDE 26.3 MMOL/L (24-32); TOTAL PROTEIN 7.8 G/DL (6.4-8.2); eGFR 52 ML/MIN
[2021-06-26 14:16] LABS: CLARITY,URINE CLEAR (Clear); COLOR,URINE YELLOW (Yellow); GLUCOSE, URINE NEGATIVE (Neg); KETONES,URINE NEGATIVE (Neg); LEUKOCYTE ESTERASE ,URINE NEGATIVE (Neg); NITRITES, URINE NEGATIVE (Neg); OCCULT BLOOD,URINE NEGATIVE (Neg); PROTEIN,URINE NEGATIVE (Neg); UA COLLECTION TYPE CLN CATCH MIDSTREAM; UROBILINOGEN,URINE 0.2 E.U/dL (0.2-1.0)
[~2021-07-02] VITALS: Ht 157.5 cm; Wt 81.6 kg
[~2021-07-02 09:30] MED LIST changes: +ATOR40TA PO; -ATOR40TA71 PO; +CARV-50 PO; -CARV6.253 PO; -DIGO250T4 PO; +DOCUMENT DATE & TIME OF BETA-BLOCKER PO ONE; -LISI2.5T14 PO; +LISI40TA13 PO; -LORA10TA7 PO; -OMEP20TA23 PO; +aspirin 325mg tablet PO ONE; +diphenhydrAMINE 25mg capsule PO SCH; +famotidine 20mg tablet PO ONE; +nitroPRUSSIDE (NIPRIDE) (200MCG/ML) 100ML Drip IV SCH; +ondansetron/PF 4mg/2ml inj IV PRN; +phenylephrine inj 50 MG in normal saline 250ml IV soln 245 ML IV SCH; +predniSONE 20 mg tablet PO SCH; +ringers solution, lacted 1,000 ML IV SCH; +vancomycin 1,500 MG in NS 300ml IV soln IV ONE
[2021-07-09] MEDS ORDERED: ringers solution, lacted 1,000 ML IV SCH (05:00)
[2021-07-09] MEDS ORDERED: nitroPRUSSIDE (NIPRIDE) (200MCG/ML) 100ML Drip IV SCH (05:30)
[2021-07-09] MEDS ORDERED: DOCUMENT DATE & TIME OF BETA-BLOCKER PO ONE (05:30)
[2021-07-09] MEDS ORDERED: ondansetron/PF 4mg/2ml inj IV PRN (05:30)
[2021-07-09] MEDS ORDERED: aspirin 325mg tablet PO ONE (05:30)
[2021-07-09] MEDS ORDERED: predniSONE 20 mg tablet PO SCH (05:30)
[2021-07-09] MEDS ORDERED: vancomycin 1,500 MG in NS 300ml IV soln IV ONE (05:30)
[2021-07-09] MEDS ORDERED: diphenhydrAMINE 25mg capsule PO SCH (05:30)
[2021-07-09] MEDS ORDERED: famotidine 20mg tablet PO ONE (05:30)
[2021-07-09] MEDS ORDERED: phenylephrine 50 MG in NS 250ml IVPB IV SCH (05:30)
== END 2021-07-02 23:59 | disposition home or self-care (01) ==
LOC: PRE-OP 09:30 → EDSTATUS 07-09 10:00
PROVIDERS: ATTEND Internal Medicine Cardiovascular Disease
DX: I35.0 Nonrheumatic aortic (valve) stenosis (principal); R06.02 Shortness of breath; I65.29 Occlusion and stenosis of unspecified carotid artery; M25.78 Osteophyte, vertebrae; Z20.822 Contact with and (suspected) exposure to COVID-19
CPT/HCPCS: 36415; 71046; 80053; 81003; 85025; 85610; 85730; 87081; J2370; J3370; J7040; J7050; J7512; Q0163; U0003; U0005; J3490; J7120

== ENCOUNTER 2021-08-31 13:52 | Emergency (ER) | payer MEDICARE, OTHER ==
[~2021-08-31] VITALS: Ht 165.1 cm; Wt 79.5 kg
[~2021-08-31 13:52] MED LIST changes: -DOCUMENT DATE & TIME OF BETA-BLOCKER PO ONE; -aspirin 325mg tablet PO ONE; -diphenhydrAMINE 25mg capsule PO SCH; -famotidine 20mg tablet PO ONE; -nitroPRUSSIDE (NIPRIDE) (200MCG/ML) 100ML Drip IV SCH; -ondansetron/PF 4mg/2ml inj IV PRN; -phenylephrine inj 50 MG in normal saline 250ml IV soln 245 ML IV SCH; -predniSONE 20 mg tablet PO SCH; -ringers solution, lacted 1,000 ML IV SCH; -vancomycin 1,500 MG in NS 300ml IV soln IV ONE
[2021-08-31 14:21] VITALS: BP 104/58
== END 2021-08-31 15:09 | disposition left against medical advice (07) ==
LOC: ER 13:53
DX: R53.1 Weakness (principal); Z53.21 Procedure and treatment not carried out due to patient leaving prior to being seen by health care provider

== ENCOUNTER 2022-02-24 13:06 | Emergency (ER) | payer MEDICARE, OTHER ==
[~2022-02-24] VITALS: Ht 158.8 cm; Wt 84.1 kg
[2022-02-24] MEDS ORDERED: aspirin 81mg tab.chew PO ONE (13:15)
[2022-02-24 13:39] LABS: BASOPHILS # (AUTO) 0.1 X10'3 (0-0.2); BASOPHILS % (AUTO) 1.3 % (0-1); EOSINOPHILS # (AUTO) 0.1 X10'3 (0-0.9); EOSINOPHILS % (AUTO) 1.7 % (0-6); HEMATOCRIT 39.9 % (35.0-45.0); HEMOGLOBIN 13.5 g/dl (12.0-16.0); LYMPHOCYTES # (AUTO) 2.6 X10'3 (1.1-4.8); MEAN CORPUSCULAR HGB CONC 33.7 g/dL (33.0-36.5); MEAN CORPUSCULAR VOLUME 91.9 FL (78-98); MEAN PLATELET VOLUME 9.6 FL (7.4-10.4); MONOCYTES # (AUTO) 0.5 X10'3 (0-0.9); MONOCYTES % (AUTO) 7.5 % (2-12); NEUTROPHILS # (AUTO) 3.4 X10'3 (1.8-7.7); NEUTROPHILS % (AUTO) 50.5 % (42-75); PLATELET COUNT 212 X10'3 (140-440); RED BLOOD COUNT 4.34 X10'6 (4.20-5.60); RED CELL DISTRIBUTION WIDTH 13.3 % (11.5-14.5); WHITE BLOOD COUNT 6.8 X10'3 (4.5-11.0)
[2022-02-24 13:46] LABS: ALANINE AMINOTRANSFERASE 18 U/L (12-78); ALBUMIN 3.5 G/DL (3.4-5.0); ALBUMIN/GLOBULIN RATIO 0.9 (1.1-1.5); ALKALINE PHOSPHATASE 104 IU/L (46-116); ANION GAP 8 (8-16); ASPARTATE AMINO TRANSFERASE 14 U/L (10-37); BILIRUBIN,TOTAL 0.4 MG/DL (0.1-1.0); BLOOD UREA NITROGEN 10 MG/DL (7-18); BUN/CREATININE RATIO 11.9 (6.6-38.0); CALCIUM 8.7 MG/DL (8.5-10.1); CHLORIDE 107 MMOL/L (99-107); CREATININE 0.84 MG/DL (0.40-0.90); GLUCOSE 123 MG/DL (70-104); POTASSIUM 4.1 MMOL/L (3.5-5.1); SODIUM 141 MMOL/L (135-145); TOTAL CARBON DIOXIDE 25.8 MMOL/L (24-32); TOTAL PROTEIN 7.2 G/DL (6.4-8.2); eGFR 66 ML/MIN
[2022-02-24] MEDS ORDERED: normal saline 1000ml 1,000 ML IV SCH (14:20)
[2022-02-24 14:30] VITALS: BP 120/63
== END 2022-02-24 14:32 | disposition home or self-care (01) ==
LOC: ER 13:07
DX: I48.0 Paroxysmal atrial fibrillation (principal); I38 Endocarditis, valve unspecified; R42 Dizziness and giddiness; I48.91 Unspecified atrial fibrillation; E78.00 Pure hypercholesterolemia, unspecified; K21.9 Gastro-esophageal reflux disease without esophagitis; G89.29 Other chronic pain; Z87.19 Personal history of other diseases of the digestive system; Z86.73 Personal history of transient ischemic attack (TIA), and cerebral infarction without residual deficits; Z90.49 Acquired absence of other specified parts of digestive tract; Z90.710 Acquired absence of both cervix and uterus; Z98.51 Tubal ligation status; Z88.1 Allergy status to other antibiotic agents; Z88.8 Allergy status to other drugs, medicaments and biological substances; Z91.018 Allergy to other foods; Z91.040 Latex allergy status; Z91.041 Radiographic dye allergy status; Z79.899 Other long term (current) drug therapy
CPT/HCPCS: 36415; 71045; 80053; 83880; 84484; 85025; 93005; 99285; J7030; 96360

== ENCOUNTER 2022-04-24 22:16 | Emergency (ER) | payer MEDICARE, OTHER ==
[~2022-04-24] VITALS: Ht 157.5 cm; Wt 90.9 kg
[2022-04-24 22:27] VITALS: BP 135/58
[2022-04-24 23:00] LABS: BASOPHILS # (AUTO) 0.1 X10'3 (0-0.2); BASOPHILS % (AUTO) 0.9 % (0-1); EOSINOPHILS # (AUTO) 0.1 X10'3 (0-0.9); EOSINOPHILS % (AUTO) 1.3 % (0-6); LYMPHOCYTES # (AUTO) 3.6 X10'3 (1.1-4.8); MEAN CORPUSCULAR HEMOGLOBIN 31.6 PG (27.0-31.0); MEAN CORPUSCULAR HGB CONC 34.2 g/dL (33.0-36.5); MEAN CORPUSCULAR VOLUME 92.4 FL (78-98); MEAN PLATELET VOLUME 8.6 FL (7.4-10.4); MONOCYTES # (AUTO) 0.8 X10'3 (0-0.9); MONOCYTES % (AUTO) 9.4 % (2-12); NEUTROPHILS # (AUTO) 3.9 X10'3 (1.8-7.7); NEUTROPHILS % (AUTO) 46.4 % (42-75); PLATELET COUNT 228 X10'3 (140-440); RED BLOOD COUNT 4.12 X10'6 (4.20-5.60); RED CELL DISTRIBUTION WIDTH 13.4 % (11.5-14.5); WHITE BLOOD COUNT 8.5 X10'3 (4.5-11.0)
[2022-04-24 23:10] LABS: ALANINE AMINOTRANSFERASE 34 U/L (12-78); ALBUMIN 3.4 G/DL (3.4-5.0); ALBUMIN/GLOBULIN RATIO 0.9 (1.1-1.5); ALKALINE PHOSPHATASE 126 IU/L (46-116); ANION GAP 7 (8-16); ASPARTATE AMINO TRANSFERASE 19 U/L (10-37); BILIRUBIN,TOTAL 0.3 MG/DL (0.1-1.0); BLOOD UREA NITROGEN 14 MG/DL (7-18); BUN/CREATININE RATIO 16.5 (6.6-38.0); CALCIUM 8.3 MG/DL (8.5-10.1); CHLORIDE 106 MMOL/L (99-107); CREATININE 0.85 MG/DL (0.40-0.90); GLUCOSE 120 MG/DL (70-104); POTASSIUM 3.6 MMOL/L (3.5-5.1); SODIUM 141 MMOL/L (135-145); TOTAL CARBON DIOXIDE 28.5 MMOL/L (24-32); TOTAL PROTEIN 7.3 G/DL (6.4-8.2); eGFR 65 ML/MIN
== END 2022-04-25 01:24 | disposition left against medical advice (07) ==
LOC: ER 22:16
DX: R07.9 Chest pain, unspecified (principal); Z53.21 Procedure and treatment not carried out due to patient leaving prior to being seen by health care provider
CPT/HCPCS: 36415; 71045; 80053; 83880; 84484; 85025; 93005

== ENCOUNTER 2022-04-29 21:05 | Emergency (ER) | payer MEDICARE, OTHER ==
[~2022-04-29] VITALS: Ht 157.5 cm; Wt 81.4 kg
[2022-04-29 21:23] VITALS: BP 141/72
[2022-04-29 21:56] LABS: BASOPHILS % (AUTO) 0.6 % (0-1); EOSINOPHILS % (AUTO) 0 % (0-6); HEMATOCRIT 40.8 % (35.0-45.0); HEMOGLOBIN 14.1 g/dl (12.0-16.0); LYMPHOCYTES # (AUTO) 1.3 X10'3 (1.1-4.8); LYMPHOCYTES % (AUTO) 18.5 % (21-51); MEAN CORPUSCULAR HEMOGLOBIN 31.5 PG (27.0-31.0); MEAN CORPUSCULAR HGB CONC 34.5 g/dL (33.0-36.5); MEAN CORPUSCULAR VOLUME 91.5 FL (78-98); MONOCYTES # (AUTO) 0.2 X10'3 (0-0.9); MONOCYTES % (AUTO) 2.7 % (2-12); NEUTROPHILS # (AUTO) 5.4 X10'3 (1.8-7.7); NEUTROPHILS % (AUTO) 78.2 % (42-75); PLATELET COUNT 248 X10'3 (140-440); RED BLOOD COUNT 4.47 X10'6 (4.20-5.60); RED CELL DISTRIBUTION WIDTH 13.1 % (11.5-14.5); WHITE BLOOD COUNT 6.9 X10'3 (4.5-11.0)
[2022-04-29 22:02] LABS: ALANINE AMINOTRANSFERASE 25 U/L (12-78); ALBUMIN 3.8 G/DL (3.4-5.0); ALBUMIN/GLOBULIN RATIO 0.9 (1.1-1.5); ALKALINE PHOSPHATASE 113 IU/L (46-116); ANION GAP 9 (8-16); ASPARTATE AMINO TRANSFERASE 16 U/L (10-37); BILIRUBIN,TOTAL 0.4 MG/DL (0.1-1.0); BLOOD UREA NITROGEN 16 MG/DL (7-18); BUN/CREATININE RATIO 15.4 (6.6-38.0); CALCIUM 8.9 MG/DL (8.5-10.1); CHLORIDE 105 MMOL/L (99-107); CREATININE 1.04 MG/DL (0.40-0.90); GLUCOSE 169 MG/DL (70-104); POTASSIUM 4.2 MMOL/L (3.5-5.1); SODIUM 138 MMOL/L (135-145); TOTAL CARBON DIOXIDE 24.2 MMOL/L (24-32); eGFR 52 ML/MIN
== END 2022-04-29 23:32 | disposition left against medical advice (07) ==
LOC: ER 21:06
DX: R06.02 Shortness of breath (principal); Z53.21 Procedure and treatment not carried out due to patient leaving prior to being seen by health care provider
CPT/HCPCS: 36415; 71045; 80053; 83880; 84484; 85025; 93005

== ENCOUNTER 2022-05-16 08:41 | Emergency (ER) | payer MEDICARE, OTHER ==
[~2022-05-16] VITALS: Ht 158.8 cm; Wt 87.7 kg
[2022-05-16] MEDS ORDERED: ondansetron/PF 4mg/2ml inj IV ONE (09:15)
[2022-05-16] MEDS ORDERED: mag hydrox/Alum hydrox/simeth 30ml oral suspension PO ONE (09:20)
[2022-05-16] MEDS ORDERED: LIDOcaine Viscous 15ml cup MM ONE (09:20)
[2022-05-16 10:04] LABS: BASOPHILS # (AUTO) 0.1 X10'3 (0-0.2); EOSINOPHILS # (AUTO) 0.1 X10'3 (0-0.9); EOSINOPHILS % (AUTO) 1.5 % (0-6); HEMATOCRIT 36.8 % (35.0-45.0); HEMOGLOBIN 12.7 g/dl (12.0-16.0); LYMPHOCYTES # (AUTO) 3.7 X10'3 (1.1-4.8); LYMPHOCYTES % (AUTO) 41.8 % (21-51); MEAN CORPUSCULAR HEMOGLOBIN 31.8 PG (27.0-31.0); MEAN CORPUSCULAR HGB CONC 34.5 g/dL (33.0-36.5); MEAN PLATELET VOLUME 9.3 FL (7.4-10.4); MONOCYTES # (AUTO) 0.7 X10'3 (0-0.9); NEUTROPHILS # (AUTO) 4.3 X10'3 (1.8-7.7); NEUTROPHILS % (AUTO) 47.7 % (42-75); PLATELET COUNT 168 X10'3 (140-440); RED CELL DISTRIBUTION WIDTH 13.1 % (11.5-14.5); WHITE BLOOD COUNT 8.9 X10'3 (4.5-11.0)
[2022-05-16 10:18] LABS: ALANINE AMINOTRANSFERASE 20 U/L (12-78); ALBUMIN 3.1 G/DL (3.4-5.0); ALBUMIN/GLOBULIN RATIO 0.8 (1.1-1.5); ALKALINE PHOSPHATASE 87 IU/L (46-116); ANION GAP 8 (8-16); ASPARTATE AMINO TRANSFERASE 12 U/L (10-37); BILIRUBIN,TOTAL 0.3 MG/DL (0.1-1.0); BLOOD UREA NITROGEN 14 MG/DL (7-18); BUN/CREATININE RATIO 17.3 (6.6-38.0); CALCIUM 8.6 MG/DL (8.5-10.1); CHLORIDE 108 MMOL/L (99-107); CREATININE 0.81 MG/DL (0.40-0.90); GLUCOSE 94 MG/DL (70-104); POTASSIUM 3.9 MMOL/L (3.5-5.1); SODIUM 143 MMOL/L (135-145); TOTAL CARBON DIOXIDE 27.5 MMOL/L (24-32); TOTAL PROTEIN 6.8 G/DL (6.4-8.2); eGFR 69 ML/MIN
[2022-05-16 11:02] LABS: CLARITY,URINE CLEAR (Clear); COLOR,URINE YELLOW (Yellow); GLUCOSE, URINE NEGATIVE (Neg); KETONES,URINE NEGATIVE (Neg); LEUKOCYTE ESTERASE ,URINE NEGATIVE (Neg); NITRITES, URINE NEGATIVE (Neg); OCCULT BLOOD,URINE NEGATIVE (Neg); PH,URINE 6.5 (4.8-8.0); PROTEIN,URINE NEGATIVE (Neg); UROBILINOGEN,URINE 0.2 E.U/dL (0.2-1.0)
[2022-05-16 11:07] LABS: UA COLLECTION TYPE CLN CATCH MIDSTREAM
[2022-05-16 11:19] LABS: D-DIMER < 0.19 MG/L FEU (0-0.50)
[2022-05-16 11:31] VITALS: BP 140/65
== END 2022-05-16 13:01 | disposition home or self-care (01) ==
LOC: ER 08:41
DX: R07.89 Other chest pain (principal); E78.00 Pure hypercholesterolemia, unspecified; K21.9 Gastro-esophageal reflux disease without esophagitis; G89.29 Other chronic pain; M54.50 Low back pain, unspecified; Z88.1 Allergy status to other antibiotic agents; Z88.2 Allergy status to sulfonamides; Z88.5 Allergy status to narcotic agent; Z88.8 Allergy status to other drugs, medicaments and biological substances; Z91.013 Allergy to seafood; Z91.018 Allergy to other foods; Z91.041 Radiographic dye allergy status; Z90.49 Acquired absence of other specified parts of digestive tract; Z90.710 Acquired absence of both cervix and uterus; Z98.51 Tubal ligation status
CPT/HCPCS: 36415; 71045; 80053; 81003; 83880; 84484; 85025; 85379; 93005; 96374; 99285; J2405

== ENCOUNTER 2022-07-18 02:48 | Emergency (ER) | payer MEDICARE, OTHER ==
[~2022-07-18] VITALS: Ht 157.5 cm; Wt 85.9 kg
[2022-07-18 02:54] VITALS: BP 144/87
[2022-07-18] MEDS ORDERED: acetaminophen 325mg tablet PO ONE (03:15)
== END 2022-07-18 05:48 | disposition home or self-care (01) ==
LOC: ER 02:48
DX: M54.9 Dorsalgia, unspecified (principal); R26.9 Unspecified abnormalities of gait and mobility; E78.00 Pure hypercholesterolemia, unspecified; K21.9 Gastro-esophageal reflux disease without esophagitis; M54.50 Low back pain, unspecified; G89.29 Other chronic pain; Z91.013 Allergy to seafood; Z88.5 Allergy status to narcotic agent; Z91.040 Latex allergy status; Z88.1 Allergy status to other antibiotic agents; Z90.49 Acquired absence of other specified parts of digestive tract; Z90.710 Acquired absence of both cervix and uterus; Z98.51 Tubal ligation status; Z98.890 Other specified postprocedural states; Z91.041 Radiographic dye allergy status; W19.XXXA Unspecified fall, initial encounter; Y93.89 Activity, other specified; Y92.89 Other specified places as the place of occurrence of the external cause; Y99.8 Other external cause status
CPT/HCPCS: 70450; 71100; 99284

== ENCOUNTER 2022-09-11 19:21 | Inpatient (IN) | payer MEDICARE, OTHER ==
[~2022-09-11] VITALS: Ht 157.5 cm; Wt 90.9 kg
[2022-09-11] MEDS ORDERED: normal saline 1000ml 1,000 ML IV ONE (19:35)
[2022-09-11] MEDS ORDERED: diltiazem 5mg/ml 5ml inj. IV ONE ×2 (19:35→20:00)
[2022-09-11 19:46] LABS: BASOPHILS # (AUTO) 0.1 X10'3 (0-0.2); BASOPHILS % (AUTO) 0.9 % (0-1); EOSINOPHILS # (AUTO) 0.2 X10'3 (0-0.9); EOSINOPHILS % (AUTO) 1.8 % (0-6); HEMOGLOBIN 12.7 g/dl (12.0-16.0); LYMPHOCYTES # (AUTO) 4.9 X10'3 (1.1-4.8); LYMPHOCYTES % (AUTO) 48.1 % (21-51); MEAN CORPUSCULAR HEMOGLOBIN 31.8 PG (27.0-31.0); MEAN CORPUSCULAR HGB CONC 34.2 g/dL (33.0-36.5); MEAN CORPUSCULAR VOLUME 93.1 FL (78-98); MEAN PLATELET VOLUME 8.9 FL (7.4-10.4); MONOCYTES # (AUTO) 0.9 X10'3 (0-0.9); NEUTROPHILS # (AUTO) 4.1 X10'3 (1.8-7.7); NEUTROPHILS % (AUTO) 40.2 % (42-75); PLATELET COUNT 212 X10'3 (140-440); RED BLOOD COUNT 3.98 X10'6 (4.20-5.60); WHITE BLOOD COUNT 10.1 X10'3 (4.5-11.0)
[2022-09-11] MEDS ORDERED: diltiazem-D5W 125mg/125ml 125 ML IV SCH (20:00)
[2022-09-11 20:09] LABS: ALANINE AMINOTRANSFERASE 17 U/L (12-78); ALBUMIN 3.1 G/DL (3.4-5.0); ALBUMIN/GLOBULIN RATIO 0.9 (1.1-1.5); ALKALINE PHOSPHATASE 110 IU/L (46-116); ANION GAP 11 (8-16); ASPARTATE AMINO TRANSFERASE 14 U/L (10-37); BILIRUBIN,TOTAL 0.3 MG/DL (0.1-1.0); BLOOD UREA NITROGEN 11 MG/DL (7-18); BUN/CREATININE RATIO 15.9 (6.6-38.0); CALCIUM 7.5 MG/DL (8.5-10.1); CHLORIDE 108 MMOL/L (99-107); CREATININE 0.69 MG/DL (0.40-0.90); GLUCOSE 122 MG/DL (70-104); MAGNESIUM 1.7 MG/DL (1.5-2.4); POTASSIUM 3.2 MMOL/L (3.5-5.1); SODIUM 141 MMOL/L (135-145); TOTAL CARBON DIOXIDE 22.5 MMOL/L (24-32); TOTAL PROTEIN 6.4 G/DL (6.4-8.2); eGFR 83 ML/MIN
[2022-09-11] MEDS ORDERED: diltiazem-NS 100mg/100ml 100 ML IV SCH (20:10)
[2022-09-11] MEDS ORDERED: potassium Cl 20 mEq SR tablet PO STA (20:16)
[2022-09-12] MEDS ORDERED: potassium Cl 20 mEq SR tablet PO PRN ×2 (00:25)
[2022-09-12] MEDS ORDERED: magnesium hydroxide 30ml (MOM) UD suspension PO PRN (00:25)
[2022-09-12] MEDS ORDERED: acetaminophen 325mg tablet PO PRN ×2 (00:25)
[2022-09-12] MEDS ORDERED: ondansetron 4mg rapidly disintigrating tab PO PRN (00:25)
[2022-09-12] MEDS ORDERED: mag hydrox/Alum hydrox/simeth 30ml oral suspension PO PRN (00:25)
[2022-09-12] MEDS ORDERED: potassium Cl 40MEQ/1/2NS 520ml 520 ML IV PRN (00:25)
[2022-09-12] MEDS ORDERED: diphenhydrAMINE 50 mg/ml inj IV PRN (00:25)
[2022-09-12] MEDS ORDERED: acetaminophen 650mg rectal suppository RC PRN (00:25)
[2022-09-12] MEDS ORDERED: bisacodyl 10mg suppository rectal RC PRN (00:25)
[2022-09-12] MEDS ORDERED: ondansetron/PF 4mg/2ml inj IV PRN (00:25)
[2022-09-12] MEDS ORDERED: normal saline 1000ml 1,000 ML IV SCH (00:25)
[2022-09-12] MEDS ORDERED: diphenhydrAMINE 25mg capsule PO PRN (00:25)
--- NOTE | 2022-09-12 02:50 | NUR ---
Notified Dr Rothman of upward trending troponins, per MD order 81mg ASA daily
[2022-09-12] MEDS ORDERED: LISI2.5T89 PO (03:07)
[2022-09-12] MEDS ORDERED: CARV6.253 PO (03:09)
[2022-09-12 03:14] LABS: CREATINE KINASE 66 U/L (26-192); LIPASE < 50 U/L (73-393); PHOSPHORUS 3.4 MG/DL (2.3-4.5); POTASSIUM 3.6 MMOL/L (3.5-5.1)
[2022-09-12 03:32] LABS: D-DIMER 0.21 MG/L FEU (0-0.50)
[2022-09-12 03:59] VITALS: BP 134/49
[2022-09-12] MEDS ORDERED: pantoprazole 40mg Tablet.DR PO SCH (07:30)
[2022-09-12] MEDS ORDERED: docusate sod 100mg capsule PO SCH (08:00)
[2022-09-12] MEDS ORDERED: K and/or MAG REPLACEMENT MC SCH (08:00)
[2022-09-12] MEDS ORDERED: aspirin 81mg tab.chew PO SCH (08:30)
[2022-09-12] MEDS ORDERED: temazepam 15mg capsule PO PRN (21:00)
== END 2022-09-12 03:59 | disposition left against medical advice (07) | DRG 189 ==
LOC: ER 19:21 → ED HOLD 09-12 00:27
PROVIDERS: ADMIT Family Medicine; ATTEND Family Medicine
DX: J96.01 Acute respiratory failure with hypoxia (principal); I21.A1 Myocardial infarction type 2; E87.20 Acidosis, unspecified; I48.91 Unspecified atrial fibrillation; E78.00 Pure hypercholesterolemia, unspecified; E87.6 Hypokalemia; G89.4 Chronic pain syndrome; I11.0 Hypertensive heart disease with heart failure; K76.0 Fatty (change of) liver, not elsewhere classified; F32.A Depression, unspecified; Z53.29 Procedure and treatment not carried out because of patient's decision for other reasons; F41.9 Anxiety disorder, unspecified; M53.87 Other specified dorsopathies, lumbosacral region; K21.9 Gastro-esophageal reflux disease without esophagitis; M54.9 Dorsalgia, unspecified; I27.20 Pulmonary hypertension, unspecified; I50.9 Heart failure, unspecified; Z80.41 Family history of malignant neoplasm of ovary; Z82.49 Family history of ischemic heart disease and other diseases of the circulatory system; Z83.3 Family history of diabetes mellitus; Z86.73 Personal history of transient ischemic attack (TIA), and cerebral infarction without residual deficits; Z90.710 Acquired absence of both cervix and uterus; Z88.2 Allergy status to sulfonamides; Z88.8 Allergy status to other drugs, medicaments and biological substances; Z91.041 Radiographic dye allergy status; Z91.040 Latex allergy status; Z88.5 Allergy status to narcotic agent; Z91.013 Allergy to seafood; Z90.49 Acquired absence of other specified parts of digestive tract; Z98.51 Tubal ligation status; Z79.899 Other long term (current) drug therapy
CPT/HCPCS: 36415; 71045; 80053; 82550; 83690; 83735; 83880; 84100; 84132; 84484; 85025; 85379; 85610; 99285; G0378; J3490; J7030

== ENCOUNTER 2022-12-01 01:39 | Emergency (ER) | payer MEDICARE, OTHER ==
[~2022-12-01] VITALS: Ht 160 cm; Wt 86.4 kg
[~2022-12-01 01:39] MED LIST changes: -BUPR300T53 PO; -CARV-50 PO; +CARV6.253 PO; +LISI2.5T89 PO; -LISI40TA13 PO
[2022-12-01 01:59] LABS: BASOPHILS # (AUTO) 0.1 X10'3 (0-0.2); BASOPHILS % (AUTO) 1.7 % (0-1); EOSINOPHILS # (AUTO) 0.2 X10'3 (0-0.9); EOSINOPHILS % (AUTO) 2.5 % (0-6); HEMOGLOBIN 14.1 g/dl (12.0-16.0); LYMPHOCYTES # (AUTO) 3.8 X10'3 (1.1-4.8); LYMPHOCYTES % (AUTO) 45.8 % (21-51); MEAN CORPUSCULAR HEMOGLOBIN 30.9 PG (27.0-31.0); MEAN CORPUSCULAR HGB CONC 33.6 g/dL (33.0-36.5); MEAN CORPUSCULAR VOLUME 91.9 FL (78-98); MEAN PLATELET VOLUME 9.3 FL (7.4-10.4); MONOCYTES # (AUTO) 0.8 X10'3 (0-0.9); MONOCYTES % (AUTO) 9.3 % (2-12); NEUTROPHILS # (AUTO) 3.3 X10'3 (1.8-7.7); NEUTROPHILS % (AUTO) 40.7 % (42-75); PLATELET COUNT 189 X10'3 (140-440); RED BLOOD COUNT 4.57 X10'6 (4.20-5.60); RED CELL DISTRIBUTION WIDTH 13.3 % (11.5-14.5); WHITE BLOOD COUNT 8.2 X10'3 (4.5-11.0)
[2022-12-01 02:12] LABS: ALANINE AMINOTRANSFERASE 14 U/L (12-78); ALBUMIN 3.4 G/DL (3.4-5.0); ALBUMIN/GLOBULIN RATIO 0.9 (1.1-1.5); ALKALINE PHOSPHATASE 117 IU/L (46-116); ANION GAP 8 (8-16); ASPARTATE AMINO TRANSFERASE 14 U/L (10-37); BILIRUBIN,TOTAL 0.4 MG/DL (0.1-1.0); BLOOD UREA NITROGEN 15 MG/DL (7-18); BUN/CREATININE RATIO 20.3 (10.0-20.0); CHLORIDE 106 MMOL/L (99-107); CREATININE 0.74 MG/DL (0.40-0.90); GLUCOSE 150 MG/DL (70-104); POTASSIUM 3.6 MMOL/L (3.5-5.1); SODIUM 140 MMOL/L (135-145); TOTAL CARBON DIOXIDE 25.9 MMOL/L (24-32); eGFR 76 ML/MIN
[2022-12-01 02:39] LABS: CLARITY,URINE SLIGHTLY CLOUDY (Clear); COLOR,URINE YELLOW (Yellow); GLUCOSE, URINE NEGATIVE (Neg); KETONES,URINE NEGATIVE (Neg); LEUKOCYTE ESTERASE ,URINE TRACE (Neg); NITRITES, URINE NEGATIVE (Neg); OCCULT BLOOD,URINE TRACE-INTACT (Neg); PROTEIN,URINE NEGATIVE (Neg); UROBILINOGEN,URINE 0.2 E.U/dL (0.2-1.0)
[2022-12-01 02:44] LABS: SQUAMOUS EPITHELIAL CELL,UR MANY /LPF (FEW); UA COLLECTION TYPE CLN CATCH MIDSTREAM
[2022-12-01 02:45] LABS: BACTERIA,URINE 2+ /HPF (Neg); RBC,URINE 0-2 /HPF (0-2); TRANSITIONAL EPI CELLS,URINE FEW /HPF; WBC,URINE 0-4 /HPF (0-4)
[2022-12-01] MEDS ORDERED: HYDROcodone/acetaminophen 5mg/325mg tablet PO ONE (03:10)
[2022-12-01 03:45] LABS: D-DIMER 0.21 MG/L FEU (0-0.50)
[2022-12-01] MEDS ORDERED: iohexol 300mg/ml 100ml inj. ONE (03:59)
[2022-12-01 05:00] VITALS: BP 126/66
[2022-12-01] MEDS ORDERED: CIPR-20 PO (05:48)
[2022-12-01] MEDS ORDERED: METR-159 PO (05:48)
[2022-12-01] MEDS ORDERED: DIF150T PO (05:48)
[2022-12-01] MEDS ORDERED: LIDO1ADH19 TOP (05:48)
== END 2022-12-01 06:19 | disposition home or self-care (01) ==
LOC: ER 01:40
DX: K57.92 Diverticulitis of intestine, part unspecified, without perforation or abscess without bleeding (principal); M54.50 Low back pain, unspecified; E78.00 Pure hypercholesterolemia, unspecified; K21.9 Gastro-esophageal reflux disease without esophagitis; Z88.5 Allergy status to narcotic agent; Z91.040 Latex allergy status; Z91.013 Allergy to seafood; Z88.1 Allergy status to other antibiotic agents; Z90.49 Acquired absence of other specified parts of digestive tract; Z90.710 Acquired absence of both cervix and uterus; Z98.51 Tubal ligation status
CPT/HCPCS: 36415; 71045; 74176; 80053; 81001; 83880; 84484; 85025; 85379; 93005; 99285; J3490; Q9967

== ENCOUNTER 2022-12-31 14:48 | Emergency (ER) | payer MEDICARE, OTHER ==
[~2022-12-31] VITALS: Ht 157.5 cm; Wt 91.2 kg
[~2022-12-31 14:48] MED LIST changes: +DIF150T PO; +LIDO1ADH19 TOP; -LISI2.5T89 PO
[2022-12-31 15:21] LABS: BASOPHILS # (AUTO) 0.1 X10'3 (0-0.2); BASOPHILS % (AUTO) 1.3 % (0-1); EOSINOPHILS # (AUTO) 0.1 X10'3 (0-0.9); EOSINOPHILS % (AUTO) 1.5 % (0-6); HEMATOCRIT 40.2 % (35.0-45.0); HEMOGLOBIN 13.9 g/dl (12.0-16.0); LYMPHOCYTES % (AUTO) 27.5 % (21-51); MEAN CORPUSCULAR HEMOGLOBIN 31.5 PG (27.0-31.0); MEAN CORPUSCULAR HGB CONC 34.6 g/dL (33.0-36.5); MEAN CORPUSCULAR VOLUME 91.1 FL (78-98); MEAN PLATELET VOLUME 8.9 FL (7.4-10.4); MONOCYTES # (AUTO) 0.7 X10'3 (0-0.9); MONOCYTES % (AUTO) 9.8 % (2-12); NEUTROPHILS # (AUTO) 4.4 X10'3 (1.8-7.7); NEUTROPHILS % (AUTO) 59.9 % (42-75); PLATELET COUNT 211 X10'3 (140-440); RED BLOOD COUNT 4.41 X10'6 (4.20-5.60); RED CELL DISTRIBUTION WIDTH 13.2 % (11.5-14.5); WHITE BLOOD COUNT 7.3 X10'3 (4.5-11.0)
[2022-12-31 15:31] LABS: APTT 28 SECONDS (22-32)
[2022-12-31 15:32] LABS: ALANINE AMINOTRANSFERASE 28 U/L (12-78); ALBUMIN 3.5 G/DL (3.4-5.0); ALBUMIN/GLOBULIN RATIO 0.9 (1.1-1.5); ALKALINE PHOSPHATASE 98 IU/L (46-116); ANION GAP 11 (8-16); ASPARTATE AMINO TRANSFERASE 21 U/L (10-37); BILIRUBIN,TOTAL 0.7 MG/DL (0.1-1.0); BLOOD UREA NITROGEN 10 MG/DL (7-18); BUN/CREATININE RATIO 12.8 (10.0-20.0); CALCIUM 9.2 MG/DL (8.5-10.1); CHLORIDE 104 MMOL/L (99-107); CREATININE 0.78 MG/DL (0.40-0.90); GLUCOSE 161 MG/DL (70-104); SODIUM 143 MMOL/L (135-145); TOTAL CARBON DIOXIDE 27.6 MMOL/L (24-32); TOTAL PROTEIN 7.5 G/DL (6.4-8.2); eGFR 72 ML/MIN
--- NOTE | 2022-12-31 15:40 | NUR ---
PT K IS CRITICAL 3.0. RN NOTIFIED RENATO WASHBURN. HE WILL ORD PO K.
[2022-12-31 15:48] LABS: AMYLASE 42 U/L (25-115); CREATINE KINASE 71 U/L (26-192); LIPASE < 50 U/L (73-393)
[2022-12-31 15:49] LABS: ETHANOL < 0.010 GM/DL (0.0-0.010)
[2022-12-31 16:16] LABS: PLATELET ESTIMATE NORMAL; TOTAL CELLS COUNTED 100
[2022-12-31] MEDS ORDERED: POTA-192 PO (16:32)
[2022-12-31] MEDS ORDERED: ACET-1025 PO (16:40)
[2022-12-31] MEDS ORDERED: acetaminophen 325mg tablet PO ONE (16:40)
[2022-12-31 16:50] VITALS: BP 164/76
[2022-12-31] MEDS ORDERED: potassium Cl 20 mEq SR tablet PO STA (16:57)
== END 2022-12-31 16:52 | disposition home or self-care (01) ==
LOC: ER 14:49
DX: S06.0XAA Concussion with loss of consciousness status unknown, initial encounter (principal); S00.83XA Contusion of other part of head, initial encounter; E86.0 Dehydration; E78.00 Pure hypercholesterolemia, unspecified; Z91.018 Allergy to other foods; Z88.5 Allergy status to narcotic agent; Z88.8 Allergy status to other drugs, medicaments and biological substances; Z91.041 Radiographic dye allergy status; Z91.040 Latex allergy status; Z91.013 Allergy to seafood; W19.XXXA Unspecified fall, initial encounter; Y93.89 Activity, other specified; Y92.89 Other specified places as the place of occurrence of the external cause; Y99.8 Other external cause status
CPT/HCPCS: 36415; 70450; 72125; 72131; 80053; 80320; 82150; 82550; 82553; 83690; 83874; 84484; 85007; 85025; 85610; 85730; 93005; 99284

== ENCOUNTER 2022-12-31 20:11 | Emergency (ER) | payer MEDICARE, OTHER ==
[~2022-12-31] VITALS: Ht 160 cm; Wt 81.8 kg
[~2022-12-31 20:11] MED LIST changes: +ACET-1025 PO; +POTA-192 PO
[2022-12-31] MEDS ORDERED: etomidate 2mg/ml inj. IV ONE (20:25)
[2022-12-31] MEDS ORDERED: fentaNYL/PF 50MCG/1 ML 2ML syringe IV ONE (20:25)
[2022-12-31] MEDS ORDERED: fentaNYL/PF 50MCG/1 ML 2ML syringe ONE (20:27)
[2022-12-31] MEDS ORDERED: diltiazem 5mg/ml 5ml inj. IV ONE ×2 (20:30)
[2022-12-31 20:38] LABS: BASOPHILS # (AUTO) 0.1 X10'3 (0-0.2); BASOPHILS % (AUTO) 0.9 % (0-1); EOSINOPHILS # (AUTO) 0.2 X10'3 (0-0.9); EOSINOPHILS % (AUTO) 1.6 % (0-6); HEMATOCRIT 39.8 % (35.0-45.0); HEMOGLOBIN 13.7 g/dl (12.0-16.0); LYMPHOCYTES # (AUTO) 2.9 X10'3 (1.1-4.8); LYMPHOCYTES % (AUTO) 31.6 % (21-51); MEAN CORPUSCULAR HEMOGLOBIN 31.2 PG (27.0-31.0); MEAN CORPUSCULAR HGB CONC 34.3 g/dL (33.0-36.5); MEAN CORPUSCULAR VOLUME 90.8 FL (78-98); MEAN PLATELET VOLUME 9.3 FL (7.4-10.4); MONOCYTES % (AUTO) 10.7 % (2-12); NEUTROPHILS # (AUTO) 5.1 X10'3 (1.8-7.7); NEUTROPHILS % (AUTO) 55.2 % (42-75); PLATELET COUNT 213 X10'3 (140-440); RED BLOOD COUNT 4.38 X10'6 (4.20-5.60); RED CELL DISTRIBUTION WIDTH 13.3 % (11.5-14.5); WHITE BLOOD COUNT 9.3 X10'3 (4.5-11.0)
[2022-12-31 20:51] LABS: ALANINE AMINOTRANSFERASE 29 U/L (12-78); ALBUMIN 3.4 G/DL (3.4-5.0); ALBUMIN/GLOBULIN RATIO 0.9 (1.1-1.5); ALKALINE PHOSPHATASE 110 IU/L (46-116); ANION GAP 9 (8-16); ASPARTATE AMINO TRANSFERASE 14 U/L (10-37); BILIRUBIN,TOTAL 0.5 MG/DL (0.1-1.0); BLOOD UREA NITROGEN 14 MG/DL (7-18); BUN/CREATININE RATIO 18.2 (10.0-20.0); CALCIUM 8.9 MG/DL (8.5-10.1); CHLORIDE 105 MMOL/L (99-107); CREATININE 0.77 MG/DL (0.40-0.90); GLUCOSE 163 MG/DL (70-104); POTASSIUM 3.4 MMOL/L (3.5-5.1); SODIUM 140 MMOL/L (135-145); TOTAL PROTEIN 7.2 G/DL (6.4-8.2); eGFR 73 ML/MIN
[2022-12-31 21:47] VITALS: BP 127/65
== END 2022-12-31 22:10 | disposition home or self-care (01) ==
LOC: ER 20:11
DX: I48.20 Chronic atrial fibrillation, unspecified (principal); R42 Dizziness and giddiness; R61 Generalized hyperhidrosis; E78.00 Pure hypercholesterolemia, unspecified; K21.9 Gastro-esophageal reflux disease without esophagitis; Z91.018 Allergy to other foods; Z88.5 Allergy status to narcotic agent; Z88.1 Allergy status to other antibiotic agents; Z91.013 Allergy to seafood; Z90.49 Acquired absence of other specified parts of digestive tract
CPT/HCPCS: 36415; 71045; 80053; 83880; 84484; 85025; 92960; 93005; 96374; 99152; 99285; J3010; J3490; 94760; A4615; A4620

== ENCOUNTER 2023-01-31 23:30 | Emergency (ER) | payer MEDICARE, OTHER ==
[~2023-01-31] VITALS: Ht 157.5 cm; Wt 90.5 kg
[~2023-01-31 23:30] MED LIST changes: -ACET-1025 PO; -DIF150T PO; -POTA-192 PO
[2023-02-01 01:43] VITALS: BP 122/68
== END 2023-02-01 01:45 | disposition home or self-care (01) ==
LOC: ER 23:30
DX: F07.81 Postconcussional syndrome (principal); Z91.018 Allergy to other foods; Z88.5 Allergy status to narcotic agent; Z91.041 Radiographic dye allergy status; Z91.040 Latex allergy status; Z88.1 Allergy status to other antibiotic agents; Z91.013 Allergy to seafood
CPT/HCPCS: 70450; 72125; 99284

== ENCOUNTER 2023-04-15 01:48 | Emergency (ER) | payer MEDICARE, OTHER ==
[~2023-04-15] VITALS: Ht 160 cm; Wt 84.1 kg
[2023-04-15 01:50] VITALS: TEMP 98.2
[2023-04-15 02:04] LABS: BASOPHILS # (AUTO) 0.1 X10'3 (0-0.2); BASOPHILS % (AUTO) 1.2 % (0-1); EOSINOPHILS # (AUTO) 0.2 X10'3 (0-0.9); EOSINOPHILS % (AUTO) 1.9 % (0-6); HEMATOCRIT 38.8 % (35.0-45.0); HEMOGLOBIN 13.3 g/dl (12.0-16.0); MEAN CORPUSCULAR HEMOGLOBIN 31.5 PG (27.0-31.0); MEAN CORPUSCULAR HGB CONC 34.2 g/dL (33.0-36.5); MEAN PLATELET VOLUME 9.4 FL (7.4-10.4); MONOCYTES % (AUTO) 10.7 % (2-12); NEUTROPHILS # (AUTO) 4.4 X10'3 (1.8-7.7); NEUTROPHILS % (AUTO) 45.2 % (42-75); PLATELET COUNT 184 X10'3 (140-440); RED BLOOD COUNT 4.21 X10'6 (4.20-5.60); RED CELL DISTRIBUTION WIDTH 13.5 % (11.5-14.5); WHITE BLOOD COUNT 9.7 X10'3 (4.5-11.0)
[2023-04-15 02:16] LABS: ALANINE AMINOTRANSFERASE 19 U/L (12-78); ALBUMIN 3.3 G/DL (3.4-5.0); ALBUMIN/GLOBULIN RATIO 0.9 (1.1-1.5); ALKALINE PHOSPHATASE 109 IU/L (46-116); ANION GAP 7 (8-16); ASPARTATE AMINO TRANSFERASE 16 U/L (10-37); BILIRUBIN,TOTAL 0.4 MG/DL (0.1-1.0); BLOOD UREA NITROGEN 11 MG/DL (7-18); BUN/CREATININE RATIO 13.4 (10.0-20.0); CHLORIDE 106 MMOL/L (99-107); CREATININE 0.82 MG/DL (0.40-0.90); GLUCOSE 111 MG/DL (70-104); POTASSIUM 3.9 MMOL/L (3.5-5.1); SODIUM 142 MMOL/L (135-145); TOTAL CARBON DIOXIDE 29.5 MMOL/L (24-32); TOTAL PROTEIN 6.9 G/DL (6.4-8.2); eGFR 68 ML/MIN
[2023-04-15 04:50] VITALS: BP 135/52; PULSE 69; RESP 16; O2SAT 95
== END 2023-04-15 04:47 | disposition home or self-care (01) ==
LOC: ER 01:49
DX: R07.89 Other chest pain (principal); E78.00 Pure hypercholesterolemia, unspecified; K21.9 Gastro-esophageal reflux disease without esophagitis; G89.29 Other chronic pain; F41.9 Anxiety disorder, unspecified; F32.9 Major depressive disorder, single episode, unspecified; Z90.49 Acquired absence of other specified parts of digestive tract; Z90.710 Acquired absence of both cervix and uterus; Z90.89 Acquired absence of other organs; Z98.51 Tubal ligation status; Z98.890 Other specified postprocedural states; Z95.1 Presence of aortocoronary bypass graft; Z86.73 Personal history of transient ischemic attack (TIA), and cerebral infarction without residual deficits; Z88.5 Allergy status to narcotic agent; Z91.040 Latex allergy status; Z88.1 Allergy status to other antibiotic agents; Z88.2 Allergy status to sulfonamides; Z91.013 Allergy to seafood; Z91.018 Allergy to other foods; Z79.01 Long term (current) use of anticoagulants; Z79.899 Other long term (current) drug therapy
CPT/HCPCS: 36415; 71045; 80053; 83880; 84484; 85025; 93005; 99285

== ENCOUNTER 2023-07-27 08:56 | Day surgery (SDC) | payer MEDICARE, OTHER ==
[~2023-07-27] VITALS: Ht 157.5 cm; Wt 89.4 kg
[2023-07-27] VITALS (13 sets, daily range): BP systolic 119–188; BP diastolic 64–95; PULSE 63–73; RESP 16; TEMP 97.6; O2SAT 90–97
[2023-07-27] MEDS ORDERED: LORazepam 0.5 MG tablet PO PRN (09:15)
[2023-07-27] MEDS ORDERED: normal saline 1,000 ML IV SCH (09:15)
[2023-07-27] MEDS ORDERED: diphenhydrAMINE 25mg capsule PO PRN (09:15)
[2023-07-27] MEDS ORDERED: FLEC50TA3 PO (10:02)
[2023-07-27] MEDS ORDERED: LISI2.5T14 PO (10:06)
[2023-07-27] MEDS ORDERED: TRAM50TA2 PO (10:06)
[2023-07-27] MEDS ORDERED: diphenhydrAMINE 50 mg/ml inj IM ONE (10:10)
[2023-07-27] MEDS ORDERED: famotidine/PF 10 mg/ml inj IV ONE (10:10)
[2023-07-27] MEDS ORDERED: LIDOcaine 1% (10mg/ml) 2ml vial ONE (11:25)
[2023-07-27] MEDS ORDERED: midazolam 1 mg/ML 2ml injection ONE (11:25)
[2023-07-27] MEDS ORDERED: verapamil 2.5 mg/ml inj IV ONE (11:25)
[2023-07-27] MEDS ORDERED: fentaNYL/PF 50MCG/1 ML 2ML syringe ONE (11:25)
[2023-07-27] MEDS ORDERED: iohexol 350 MG/ML 50ML vial IV ONE (11:26)
[2023-07-27] MEDS ORDERED: heparin 1,000unit/ml 10ml vial 10 ML ONE (11:26)
[2023-07-27] MEDS ORDERED: iohexol 350MG/ML 100ml bottle IV ONE (11:26)
[2023-07-27] MEDS ORDERED: LIDOcaine 1% (10mg/ml)w/preservative inj. 20ml MDV ONE (11:26)
[2023-07-27] MEDS ORDERED: nitroGLYCERIN 500mcg/5mL D5W 10 ML IV ONE (11:30)
[2023-07-27 12:06] LABS: BASOPHILS # (AUTO) 0.1 X10'3 (0-0.2); BASOPHILS % (AUTO) 0.9 % (0-1); EOSINOPHILS # (AUTO) 0.2 X10'3 (0-0.9); EOSINOPHILS % (AUTO) 2.2 % (0-6); HEMATOCRIT 40.3 % (35.0-45.0); HEMOGLOBIN 13.7 g/dl (12.0-16.0); LYMPHOCYTES # (AUTO) 2.8 X10'3 (1.1-4.8); LYMPHOCYTES % (AUTO) 37.9 % (21-51); MEAN CORPUSCULAR HEMOGLOBIN 31.7 PG (27.0-31.0); MEAN CORPUSCULAR HGB CONC 34.1 g/dL (33.0-36.5); MEAN CORPUSCULAR VOLUME 92.9 FL (78-98); MEAN PLATELET VOLUME 10.3 FL (7.4-10.4); MONOCYTES # (AUTO) 0.7 X10'3 (0-0.9); MONOCYTES % (AUTO) 9.3 % (2-12); NEUTROPHILS # (AUTO) 3.7 X10'3 (1.8-7.7); NEUTROPHILS % (AUTO) 49.7 % (42-75); PLATELET COUNT 200 X10'3 (140-440); RED BLOOD COUNT 4.33 X10'6 (4.20-5.60); RED CELL DISTRIBUTION WIDTH 13.5 % (11.5-14.5); WHITE BLOOD COUNT 7.4 X10'3 (4.5-11.0)
[2023-07-27 12:12] LABS: ALBUMIN 3.6 G/DL (3.4-5.0); ANION GAP 10 (8-16); BLOOD UREA NITROGEN 10 MG/DL (7-18); BUN/CREATININE RATIO 13.9 (10.0-20.0); CALCIUM 8.8 MG/DL (8.5-10.1); CHLORIDE 105 MMOL/L (99-107); CREATININE 0.72 MG/DL (0.40-0.90); GLUCOSE 102 MG/DL (70-104); POTASSIUM 3.8 MMOL/L (3.5-5.1); SODIUM 139 MMOL/L (135-145); TOTAL CARBON DIOXIDE 23.7 MMOL/L (24-32); eCRCL 52 ML/MIN; eGFR 79 ML/MIN
[2023-07-27 12:14] LABS: APTT 28 SECONDS (22-32); PROTHROMBIN TIME 10.3 SECONDS (9.0-12.0)
[2023-07-27] MEDS ORDERED: furosemide 40mg/4ml inj ONE (13:07)
[2023-07-27] MEDS ORDERED: furosemide 40mg/4ml inj IV ONE (14:30)
[2023-07-27] MEDS ORDERED: potassium Cl 20 mEq SR tablet PO ONE ×2 (14:30→16:50)
[2023-07-27] MEDS ORDERED: HYDROcodone/acetaminophen 10/325mg tab PO ONE (16:45)
[2023-07-28 10:03] LABS: ISTAT HGB ART 12.2 g/dl (12.0-16.0); ISTAT Hct ART 36 %PCV (35-45); ISTAT O2 SATURATION ARTERIAL 96 % (95-98); ISTAT SOURCE ART
== END 2023-07-27 18:00 | disposition home or self-care (01) ==
LOC: SSTAY O 08:56
PROVIDERS: ATTEND Internal Medicine Cardiovascular Disease
DX: I08.0 Rheumatic disorders of both mitral and aortic valves (principal); I25.119 Atherosclerotic heart disease of native coronary artery with unspecified angina pectoris; I48.0 Paroxysmal atrial fibrillation; I10 Essential (primary) hypertension; F32.A Depression, unspecified; K21.9 Gastro-esophageal reflux disease without esophagitis; I27.20 Pulmonary hypertension, unspecified; G47.39 Other sleep apnea; E78.5 Hyperlipidemia, unspecified; Z79.01 Long term (current) use of anticoagulants; Z79.899 Other long term (current) drug therapy; Z90.710 Acquired absence of both cervix and uterus; Z98.51 Tubal ligation status; Z98.890 Other specified postprocedural states; Z88.1 Allergy status to other antibiotic agents; Z88.2 Allergy status to sulfonamides; Z88.5 Allergy status to narcotic agent; Z90.49 Acquired absence of other specified parts of digestive tract; Z82.49 Family history of ischemic heart disease and other diseases of the circulatory system; Z83.3 Family history of diabetes mellitus
CPT/HCPCS: 36415; 76937; 80048; 82803; 85014; 85025; 85610; 85730; 93460; 99152; 99153; J1200; J1644; J1940; J2250; J3010; J3490; J7030; Q9967; A6258; A6402; C1725; C1751; C1769; C1894

== ENCOUNTER 2023-10-29 17:56 | Emergency (ER) | payer MEDICARE, OTHER ==
[~2023-10-29] VITALS: Ht 158.8 cm; Wt 89.1 kg
[~2023-10-29 17:56] MED LIST changes: -CARV6.253 PO; +FLEC50TA3 PO; -LIDO1ADH19 TOP; +LISI2.5T14 PO; +TRAM50TA2 PO
[2023-10-29 18:13] VITALS: TEMP 97.8
[2023-10-29 18:32] LABS: BASOPHILS # (AUTO) 0.1 X10'3 (0-0.2); BASOPHILS % (AUTO) 1.4 % (0-1); EOSINOPHILS # (AUTO) 0.2 X10'3 (0-0.9); EOSINOPHILS % (AUTO) 2.9 % (0-6); HEMATOCRIT 38.7 % (35.0-45.0); HEMOGLOBIN 13.4 g/dl (12.0-16.0); LYMPHOCYTES % (AUTO) 40.6 % (21-51); MEAN CORPUSCULAR HEMOGLOBIN 31.8 PG (27.0-31.0); MEAN CORPUSCULAR HGB CONC 34.5 g/dL (33.0-36.5); MEAN CORPUSCULAR VOLUME 92.3 FL (78-98); MEAN PLATELET VOLUME 9.1 FL (7.4-10.4); MONOCYTES # (AUTO) 0.7 X10'3 (0-0.9); NEUTROPHILS # (AUTO) 3.3 X10'3 (1.8-7.7); NEUTROPHILS % (AUTO) 45.1 % (42-75); PLATELET COUNT 180 X10'3 (140-440); WHITE BLOOD COUNT 7.4 X10'3 (4.5-11.0)
[2023-10-29 18:55] LABS: ALBUMIN 3.3 G/DL (3.4-5.0); ANION GAP 6 (8-16); BLOOD UREA NITROGEN 12 MG/DL (7-18); BUN/CREATININE RATIO 16.7 (10.0-20.0); CALCIUM 7.8 MG/DL (8.5-10.1); CHLORIDE 108 MMOL/L (99-107); CREATININE 0.72 MG/DL (0.40-0.90); GLUCOSE 116 MG/DL (70-104); POTASSIUM 3.9 MMOL/L (3.5-5.1); PRO BRAIN NATRIURETIC PEPTIDE 511 PG/ML (0-450); SODIUM 141 MMOL/L (135-145); TOTAL CARBON DIOXIDE 27.5 MMOL/L (24-32); eCRCL 53 ML/MIN; eGFR 79 ML/MIN
[2023-10-29] MEDS ORDERED: TRAZ-251 PO (20:37)
[2023-10-29] MEDS ORDERED: ALBU8HFA INH (20:37)
[2023-10-29] MEDS ORDERED: PRED20TA PO (20:37)
[2023-10-29 20:50] VITALS: BP 126/62; PULSE 70; RESP 16; O2SAT 97
== END 2023-10-29 20:53 | disposition home or self-care (01) ==
LOC: ER 17:57
DX: R07.89 Other chest pain (principal); I50.9 Heart failure, unspecified; K21.9 Gastro-esophageal reflux disease without esophagitis; F41.9 Anxiety disorder, unspecified; F32.A Depression, unspecified; I48.91 Unspecified atrial fibrillation; E78.00 Pure hypercholesterolemia, unspecified; Z86.73 Personal history of transient ischemic attack (TIA), and cerebral infarction without residual deficits; Z90.710 Acquired absence of both cervix and uterus; Z90.49 Acquired absence of other specified parts of digestive tract; Z88.8 Allergy status to other drugs, medicaments and biological substances; Z79.899 Other long term (current) drug therapy; Z91.040 Latex allergy status
CPT/HCPCS: 36415; 71045; 80048; 83880; 84484; 85025; 93005; 99285

== ENCOUNTER 2024-05-11 01:17 | Inpatient (IN) | payer MEDICARE, OTHER ==
[~2024-05-11] VITALS: Ht 157.5 cm; Wt 92.0 kg
[~2024-05-11 01:17] MED LIST changes: +TRAZ-251 PO
[2024-05-11 01:49] LABS: BASOPHILS # (AUTO) 0.1 X10'3 (0-0.2); BASOPHILS % (AUTO) 1.2 % (0-1); EOSINOPHILS # (AUTO) 0.2 X10'3 (0-0.9); EOSINOPHILS % (AUTO) 2.1 % (0-6); HEMOGLOBIN 13.7 g/dl (12.0-16.0); LYMPHOCYTES # (AUTO) 3.4 X10'3 (1.1-4.8); LYMPHOCYTES % (AUTO) 43.2 % (21-51); MEAN CORPUSCULAR HEMOGLOBIN 31.6 PG (27.0-31.0); MEAN CORPUSCULAR HGB CONC 34.2 g/dL (33.0-36.5); MEAN CORPUSCULAR VOLUME 92.3 FL (78-98); MEAN PLATELET VOLUME 9.2 FL (7.4-10.4); MONOCYTES # (AUTO) 0.8 X10'3 (0-0.9); MONOCYTES % (AUTO) 10.2 % (2-12); NEUTROPHILS # (AUTO) 3.4 X10'3 (1.8-7.7); NEUTROPHILS % (AUTO) 43.3 % (42-75); PLATELET COUNT 169 X10'3 (140-440); RED BLOOD COUNT 4.34 X10'6 (4.20-5.60); RED CELL DISTRIBUTION WIDTH 13.6 % (11.5-14.5); WHITE BLOOD COUNT 7.9 X10'3 (4.5-11.0)
[2024-05-11 02:05] LABS: ALANINE AMINOTRANSFERASE 17 U/L (12-78); ALBUMIN 3.2 G/DL (3.4-5.0); ALBUMIN/GLOBULIN RATIO 0.9 (1.1-1.5); ALKALINE PHOSPHATASE 102 IU/L (46-116); ANION GAP 12 (8-16); ASPARTATE AMINO TRANSFERASE 16 U/L (10-37); BILIRUBIN,TOTAL 0.4 MG/DL (0.1-1.0); BLOOD UREA NITROGEN 16 MG/DL (7-18); BUN/CREATININE RATIO 18.6 (10.0-20.0); CALCIUM 8.7 MG/DL (8.5-10.1); CHLORIDE 107 MMOL/L (99-107); CREATININE 0.86 MG/DL (0.40-0.90); GLUCOSE 122 MG/DL (70-104); POTASSIUM 3.8 MMOL/L (3.5-5.1); SODIUM 143 MMOL/L (135-145); TOTAL PROTEIN 6.8 G/DL (6.4-8.2); eCRCL 43 ML/MIN; eGFR 64 ML/MIN
[2024-05-11 02:12] LABS: LIPASE 23 U/L (16-77); PRO BRAIN NATRIURETIC PEPTIDE 1183 PG/ML (0-450)
[2024-05-11] MEDS ORDERED: magnesium hydroxide 30ml (MOM) UD suspension PO PRN (05:40)
[2024-05-11] MEDS ORDERED: traMADol 50MG tablet PO PRN (05:40)
[2024-05-11] MEDS ORDERED: magnesium sulf-water 4G/100mL 100 ML IV PRN (05:40)
[2024-05-11] MEDS ORDERED: potassium Cl 40MEQ/1/2NS 520ml 520 ML IV PRN (05:40)
[2024-05-11] MEDS ORDERED: acetaminophen 325mg tablet PO PRN (05:40)
[2024-05-11] MEDS ORDERED: magnesium Cl slow-release 64mg tablet PO PRN (05:40)
[2024-05-11] MEDS ORDERED: magnesium sulf-water 2g/50mL 50 ML IV PRN (05:40)
[2024-05-11] MEDS ORDERED: potassium Cl 20 mEq SR tablet PO PRN ×2 (05:40)
[2024-05-11] MEDS ORDERED: mag hydrox/Alum hydrox/simeth 30ml oral suspension PO PRN (05:40)
[2024-05-11] MEDS ORDERED: ondansetron/PF 4mg/2ml inj IV PRN (05:40)
[2024-05-11] MEDS ORDERED: regadenoson 0.4mg/5ml syringe IV PRN (05:45)
[2024-05-11] MEDS ORDERED: metoprolol tartrate 1mg/ml inj IV PRN (05:45)
[2024-05-11] MEDS ORDERED: aminophylline 250mg/10ml inj. IV PRN (05:45)
[2024-05-11] MEDS ORDERED: nitroGLYCERIN 0.4mg SUBLingual tab SL PRN ×2 (05:45→06:40)
[2024-05-11] MEDS ORDERED: SOTA80TA10 PO (07:03)
--- NOTE | 2024-05-11 07:15 | NUR ---
PAGED DR PRIDE REGARDING HR [address] HARGROVE ORDERED NITRO 0.4 MG SL CLARIFY OK TO GIVE MEDICATION AWAITING CALL BACK.
[2024-05-11] MEDS: K and/or MAG REPLACEMENT MC SCH (07:30)
--- NOTE | 2024-05-11 07:37 | NUR ---
RECEIVED CALL BACK FROM DR PRIDE INFORMED PT BP99/51 HR 57 RECHECKED AGAIN, BP110/[address] PRIDE STATED TO HOLD NITRO 0.4MG SL, DO NOT GIVE AT THIS TIME.
[2024-05-11] MEDS: metoprolol succinate 25mg (24-HOUR) SR. Tablet PO SCH (08:00)
[2024-05-11] MEDS: lisinopril 2.5mg tablet PO SCH (08:27)
[2024-05-11] MEDS: apixaban 5mg tablet PO SCH (08:28)
[2024-05-11] MEDS: atorvastatin 20mg tablet PO SCH (08:28)
[2024-05-11 09:45] VITALS: BP 147/50; PULSE 61; RESP 16; TEMP 97.8; O2SAT 96
--- NOTE | 2024-05-11 09:45 | NUR ---
Patient in room U 3012. I have received report from Tomasa DENSON and had the opportunity to ask questions and assume patient care. Addendum: 05/11/24 at 1014 by Jennifer Haddad RN Amended: Links added.
[2024-05-11 11:00] VITALS: BP 108/40; PULSE 58; RESP 19; TEMP 98.2; O2SAT 94
[2024-05-11] MEDS: pneumococcal 23-VAL P-sac vacc 25 mcg/0.5ml vial IMVAC ONE (14:18)
[2024-05-11 15:00] VITALS: BP 112/62; PULSE 59; RESP 14; TEMP 98.1; O2SAT 95
[2024-05-11 18:00] VITALS: BP 107/48; PULSE 63; RESP 17; TEMP 98.2; O2SAT 94
--- NOTE | 2024-05-11 18:36 | NUR ---
Problems reprioritized. Patient report given, questions answered & plan of care reviewed with Claire DENSON. Addendum: 05/11/24 at 1837 by Jennifer Haddad RN Amended: Links added.
--- NOTE | 2024-05-11 19:10 | NUR ---
Patient in room PCU 3012. I have received report from Jennifer DENSON and had the opportunity to ask questions and assume patient care.
[2024-05-11 20:00] VITALS: RESP 17; O2SAT 94
[2024-05-11] MEDS: traZODone 50mg tablet PO SCH (21:10)
[2024-05-11 22:00] VITALS: BP 108/41; PULSE 68; RESP 18; TEMP 97.6; O2SAT 94
[2024-05-12 02:00] VITALS: PULSE 74; RESP 16
[2024-05-12 06:00] VITALS: BP 126/56; PULSE 61; RESP 15; TEMP 97.2; O2SAT 91
--- NOTE | 2024-05-12 06:10 | NUR ---
Problems reprioritized. Patient report given, questions answered & plan of care reviewed with Jennifer DENSON.
--- NOTE | 2024-05-12 06:31 | NUR ---
Patient in room PCU 3012 C. I have received report from Claire DENSON and had the opportunity to ask questions and assume patient care. Pt refusing a.m. lab draw. Demanding PIV removal D/T discomfort. Informed pt that I will replace PIV jaskaran. Pt in a very negative state of mind. Addendum: 05/12/24 at 0633 by Jennifer Haddad RN Amended: Links added.
--- NOTE | 2024-05-12 06:54 | NUR ---
Pt refusing PIV after one attempt. Stated" No one knows what they are doing". removed Pt old PIV. Discussed AMA rights.
[2024-05-12 08:55] VITALS: RESP 15; O2SAT 91
[2024-05-12 11:00] VITALS: BP 117/44; PULSE 63; RESP 15; TEMP 97.7; O2SAT 97
--- NOTE | 2024-05-12 13:06 | NUR ---
PAGER ID: [phone] MESSAGE: [phone] Anton left AMA. No encouraging her to stay for. Jennifer MCCLURE
--- NOTE | 2024-05-12 13:09 | NUR ---
Pt dressed and all belongings gathered. Pt stated she was going to leave AMA. Pt left AMA despite hearing the risks and benefits of her choice. DR Camargo notified. Addendum: 05/12/24 at 1311 by Jennifer Haddad RN Amended: Links added.
== END 2024-05-12 12:44 | disposition left against medical advice (07) | DRG 303 ==
LOC: ER 01:17 → ED HOLD 05:42 → PCU 3S 09:46
PROVIDERS: ADMIT Internal Medicine Sleep Medicine; ATTEND Internal Medicine
PROC: 3E0234Z Introduction of Serum, Toxoid and Vaccine into Muscle, Percutaneous Approach (ICD-10-PCS; principal; 2024-05-11)
DX: I25.110 Atherosclerotic heart disease of native coronary artery with unstable angina pectoris (principal); I50.32 Chronic diastolic (congestive) heart failure; I48.0 Paroxysmal atrial fibrillation; Z53.21 Procedure and treatment not carried out due to patient leaving prior to being seen by health care provider; F32.A Depression, unspecified; F41.9 Anxiety disorder, unspecified; G89.29 Other chronic pain; I11.0 Hypertensive heart disease with heart failure; K21.9 Gastro-esophageal reflux disease without esophagitis; M54.9 Dorsalgia, unspecified; I35.0 Nonrheumatic aortic (valve) stenosis; E78.00 Pure hypercholesterolemia, unspecified; Z79.01 Long term (current) use of anticoagulants; Z88.2 Allergy status to sulfonamides; Z88.1 Allergy status to other antibiotic agents; Z91.041 Radiographic dye allergy status; Z91.040 Latex allergy status; Z88.5 Allergy status to narcotic agent; Z91.013 Allergy to seafood; Z79.899 Other long term (current) drug therapy; Z95.2 Presence of prosthetic heart valve; Z85.43 Personal history of malignant neoplasm of ovary; Z90.710 Acquired absence of both cervix and uterus; Z95.1 Presence of aortocoronary bypass graft; Z90.49 Acquired absence of other specified parts of digestive tract; Z83.3 Family history of diabetes mellitus; Z80.41 Family history of malignant neoplasm of ovary; Z23 Encounter for immunization
CPT/HCPCS: 36415; 71045; 80053; 83036; 83690; 83880; 84484; 85025; 87081; 90732; 93005; 93306; 99285; A4615; G0378

== ENCOUNTER 2024-06-20 10:11 | Day surgery (SDC) | payer MEDICARE, OTHER ==
[2024-06-19 12:05] LABS: BASOPHILS # (AUTO) 0.1 X10'3 (0-0.2); BASOPHILS % (AUTO) 1.2 % (0-1); EOSINOPHILS # (AUTO) 0.2 X10'3 (0-0.9); EOSINOPHILS % (AUTO) 2.4 % (0-6); HEMATOCRIT 43.6 % (35.0-45.0); HEMOGLOBIN 14.8 g/dl (12.0-16.0); LYMPHOCYTES # (AUTO) 2.3 X10'3 (1.1-4.8); LYMPHOCYTES % (AUTO) 31.3 % (21-51); MEAN CORPUSCULAR HEMOGLOBIN 31.8 PG (27.0-31.0); MEAN CORPUSCULAR HGB CONC 33.9 g/dL (33.0-36.5); MEAN CORPUSCULAR VOLUME 93.8 FL (78-98); MEAN PLATELET VOLUME 9.3 FL (7.4-10.4); MONOCYTES # (AUTO) 0.6 X10'3 (0-0.9); MONOCYTES % (AUTO) 8.1 % (2-12); NEUTROPHILS # (AUTO) 4.2 X10'3 (1.8-7.7); PLATELET COUNT 197 X10'3 (140-440); RED BLOOD COUNT 4.64 X10'6 (4.20-5.60); RED CELL DISTRIBUTION WIDTH 13.6 % (11.5-14.5); WHITE BLOOD COUNT 7.4 X10'3 (4.5-11.0)
[2024-06-19 12:11] LABS: ALBUMIN 3.4 G/DL (3.4-5.0); ANION GAP 6 (8-16); BLOOD UREA NITROGEN 10 MG/DL (7-18); BUN/CREATININE RATIO 10.1 (10.0-20.0); CALCIUM 8.9 MG/DL (8.5-10.1); CHLORIDE 106 MMOL/L (99-107); CREATININE 0.99 MG/DL (0.40-0.90); GLUCOSE 169 MG/DL (70-104); SODIUM 141 MMOL/L (135-145); TOTAL CARBON DIOXIDE 28.9 MMOL/L (24-32); eGFR 54 ML/MIN
[2024-06-19 12:15] LABS: APTT 27 SECONDS (22-32); PROTHROMBIN TIME 10.9 SECONDS (9.0-12.0)
[2024-06-20] VITALS (11 sets, daily range): BP systolic 120–174; BP diastolic 52–74; PULSE 57–75; RESP 16; TEMP 97.9; O2SAT 89–95
[~2024-06-20] VITALS: Ht 157.5 cm; Wt 92.9 kg
[~2024-06-20 10:11] MED LIST changes: -FLEC50TA3 PO; +SOTA80TA10 PO; -TRAM50TA2 PO
[2024-06-20] MEDS ORDERED: diphenhydrAMINE 25mg capsule PO PRN (10:30)
[2024-06-20] MEDS: predniSONE 20 mg tablet PO ONE (11:41)
[2024-06-20] MEDS: diphenhydrAMINE 50 mg/ml inj IV ONE (11:42)
[2024-06-20] MEDS: LORazepam 0.5 MG tablet PO PRN (11:42)
[2024-06-20] MEDS: normal saline 1,000 ML IV SCH (11:43)
[2024-06-20] MEDS ORDERED: LIDOcaine 1% (10mg/ml) 2ml vial ONE (12:06)
[2024-06-20] MEDS ORDERED: verapamil 2.5 mg/ml inj IV ONE (12:06)
[2024-06-20] MEDS ORDERED: heparin 1,000unit/ml 10ml vial 10 ML ONE (12:07)
[2024-06-20] MEDS ORDERED: iohexol 350 MG/ML 50ML vial IV ONE (12:07)
[2024-06-20] MEDS ORDERED: iohexol 350MG/ML 100ml bottle IV ONE (12:07)
[2024-06-20] MEDS ORDERED: nitroGLYCERIN 500mcg/5mL D5W 5 ML IV ONE (12:09)
[2024-06-20] MEDS ORDERED: midazolam 1 mg/ML 2ml injection ONE (12:51)
[2024-06-20] MEDS ORDERED: fentaNYL/PF 50MCG/1 ML 2ML syringe ONE (12:51)
[2024-06-20 15:33] LABS: ISTAT HGB ART 13.6 g/dl (12.0-16.0); ISTAT Hct ART 40 %PCV (35-45); ISTAT O2 SATURATION ARTERIAL 82 % (95-98); ISTAT SOURCE ART
[2024-06-20] MEDS ORDERED: ketorolac trometh 30MG/ML vial 30 MG/ML VIAL IV ONE (17:05)
[2024-06-20] MEDS: ketorolac trometh 15mg/ml vial 15 MG/ML ML IV ONE (17:45)
[2024-06-25 09:25] LABS: ISTAT HGB MIX 13.6 g/dl (12.0-16.0); ISTAT Hct MIX 40 %PCV (35-45); ISTAT O2 SATURATION MIX VENOUS 62 % (60-80); ISTAT SOURCE BLNK
== END 2024-06-20 19:15 | disposition home or self-care (01) ==
LOC: SSTAY O 10:11
PROVIDERS: ATTEND Internal Medicine Cardiovascular Disease
DX: I35.0 Nonrheumatic aortic (valve) stenosis (principal); I25.119 Atherosclerotic heart disease of native coronary artery with unspecified angina pectoris; I10 Essential (primary) hypertension; E78.5 Hyperlipidemia, unspecified; I48.0 Paroxysmal atrial fibrillation; F32.A Depression, unspecified; K21.9 Gastro-esophageal reflux disease without esophagitis; G47.39 Other sleep apnea; Z79.01 Long term (current) use of anticoagulants; Z79.899 Other long term (current) drug therapy; Z90.49 Acquired absence of other specified parts of digestive tract; Z90.710 Acquired absence of both cervix and uterus; Z90.89 Acquired absence of other organs; Z98.51 Tubal ligation status; Z88.5 Allergy status to narcotic agent; Z88.8 Allergy status to other drugs, medicaments and biological substances; Z82.49 Family history of ischemic heart disease and other diseases of the circulatory system; Z83.3 Family history of diabetes mellitus
CPT/HCPCS: 36415; 80048; 82803; 85014; 85025; 85610; 85730; 93005; 93460; 99152; A4620; A6258; C1725; C1751; C1769; C1894; J1200; J1644; J1885; J2001; J2250; J3010; J3490; J7030; J7512; Q9967; Z7610; 76937

== ENCOUNTER 2024-07-19 10:26 | Outpatient (CLI) | payer MEDICARE, OTHER ==
[~2024-07-19 10:26] MED LIST changes: +IODIXANOL 320 MG/ML INFUS..BTL 100ML IV ONE; -TRAZ-251 PO
[2024-07-19 10:59] LABS: BASOPHILS # (AUTO) 0.1 X10'3 (0-0.2); BASOPHILS % (AUTO) 0.6 % (0-1); EOSINOPHILS # (AUTO) 0.1 X10'3 (0-0.9); EOSINOPHILS % (AUTO) 0.5 % (0-6); HEMATOCRIT 40.3 % (35.0-45.0); HEMOGLOBIN 13.7 g/dl (12.0-16.0); LYMPHOCYTES # (AUTO) 2.2 X10'3 (1.1-4.8); MEAN CORPUSCULAR HEMOGLOBIN 31.5 PG (27.0-31.0); MEAN CORPUSCULAR VOLUME 92.8 FL (78-98); MEAN PLATELET VOLUME 9.4 FL (7.4-10.4); MONOCYTES # (AUTO) 0.7 X10'3 (0-0.9); MONOCYTES % (AUTO) 5.6 % (2-12); NEUTROPHILS # (AUTO) 8.7 X10'3 (1.8-7.7); NEUTROPHILS % (AUTO) 74.3 % (42-75); PLATELET COUNT 208 X10'3 (140-440); RED BLOOD COUNT 4.35 X10'6 (4.20-5.60); RED CELL DISTRIBUTION WIDTH 13.3 % (11.5-14.5); WHITE BLOOD COUNT 11.7 X10'3 (4.5-11.0)
[2024-07-19 11:08] LABS: APTT 28 SECONDS (22-32); INR 1.1 INR; PROTHROMBIN TIME 11.4 SECONDS (9.0-12.0)
[2024-07-19 11:10] LABS: ALANINE AMINOTRANSFERASE 13 U/L (12-78); ALBUMIN 3.3 G/DL (3.4-5.0); ALBUMIN/GLOBULIN RATIO 0.9 (1.1-1.5); ALKALINE PHOSPHATASE 107 IU/L (46-116); ANION GAP 4 (8-16); ASPARTATE AMINO TRANSFERASE 14 U/L (10-37); BILIRUBIN,TOTAL 0.4 MG/DL (0.1-1.0); BLOOD UREA NITROGEN 10 MG/DL (7-18); BUN/CREATININE RATIO 11.8 (10.0-20.0); CALCIUM 8.5 MG/DL (8.5-10.1); CHLORIDE 105 MMOL/L (99-107); CREATININE 0.85 MG/DL (0.40-0.90); GLUCOSE 128 MG/DL (70-104); POTASSIUM 3.6 MMOL/L (3.5-5.1); SODIUM 136 MMOL/L (135-145); TOTAL CARBON DIOXIDE 26.8 MMOL/L (24-32); eGFR 65 ML/MIN
[2024-07-19 11:17] LABS: PRO BRAIN NATRIURETIC PEPTIDE 1097 PG/ML (0-450)
== END 2024-07-20 23:59 | disposition home or self-care (01) ==
LOC: RAD 10:26
PROVIDERS: ATTEND Internal Medicine Cardiovascular Disease
DX: I08.0 Rheumatic disorders of both mitral and aortic valves (principal); K57.30 Diverticulosis of large intestine without perforation or abscess without bleeding; R06.02 Shortness of breath; I65.29 Occlusion and stenosis of unspecified carotid artery
CPT/HCPCS: 36415; 71046; 71275; 74174; 75572; 80053; 83880; 85025; 85610; 85730; Q9967